=== PATIENT | female | born 1950 | race Caucasian/White ===

== ENCOUNTER → 2018-01-27 07:05 | Outpatient (CLI) | payer MEDICARE, SELFPAY ==
--- NOTE | 2018-01-27 10:26 | STRESSREP ---
Stress Test Report Pharmacologic myocardial perfusion stress test. 67-year-old lady with a history of shortness of breath. Medications hydrocodone thiazide Bystolic lisinopril. Stress protocol: Resting EKG demonstrates normal sinus rhythm with a rate of 72 bpm normal intervals and noted resting blood pressure is 158/80 mmHg. 0.4 mg of regadenoson was infused per usual protocol followed by rapid intravenous saline flush injection continuous EKG monitoring was performed. At rest there were no ST or T-wave changes noted to suggest abnormal flow reserve at peak infusion no ST or T-wave changes were noted to suggest abnormal flow reserve. The resting blood pressure was 158/80 with a final blood pressure of 162/76 meters of mercury. Myocardial perfusion protocol. 14.4 mCi of technetium 99m sestamibi was injected at rest. 0.4 mg of regadenoson was infused per usual protocol. At peak infusion 44.1 mCi of technetium 99m sestamibi was injected. Stress images were obtained stress and rest images were reconstructed and compared in the short axis vertical long and horizontal long axis. Gated images were also obtained. Perfusion SPECT analysis: Review of the stress images demonstrate normal uptake of tracer noted in all areas of the myocardium. The resting images similarly demonstrate normal uptake of tracer noted in all areas of the myocardium. No areas of reversibility are noted suggest ischemia no previous infarct is noted. Gated SPECT analysis. The gated ejection fraction is noted to be 83%. Conclusion: Normal pharmacologic myocardial perfusion stress test. Preserved ejection fraction.
== END ==
PROVIDERS: Family Provider Internal Medicine; PCP Internal Medicine; Visit Provider Internal Medicine
DX: R06.02 Shortness of breath (principal); R61 Generalized hyperhidrosis
CPT/HCPCS: 78452; 93017; A9500; A4216; J2785

== ENCOUNTER → 2018-04-12 07:58 | Outpatient (CLI) | payer MEDICARE, SELFPAY ==
--- NOTE | 2018-04-12 08:01 | US_ITS ---
STUDY: ABDOMINAL ULTRASOUND - RIGHT UPPER QUADRANT REASON FOR VISIT: Female, 67 years old. Fatty liver. TECHNIQUE: Ultrasound evaluation of the right upper quadrant was performed with real-time and static mcneil-scale imaging. TECHNICAL QUALITY: Adequate. COMPARISON: CT abdomen and pelvis 07/30/2016. FINDINGS: Liver: The greatest dimension of the liver on today's study is 15.4 cm. This underestimates the size of the liver. On prior CT imaging the greatest craniocaudal dimension of the right liver was 21.5 cm. Echogenic liver consistent with hepatic steatosis. The bile ducts are within normal limits. There is hepatic color flow. The direction of portal flow is hepatopetal. There is no demonstrated mass lesion. Gallbladder: Normal distended gallbladder. Small portions of the gallbladder wall are mildly thickened. The majority of the gallbladder appears to be normal in wall thickness. Layering echogenic sludge/small stones. There is a negative sonographic Del Angel's sign. There is no pericholecystic fluid. Common Bile Duct (C.B.D.): The common bile duct measures 4 mm. Pancreas: Normal size of the head, body and tail of the pancreas. There is normal echogenicity of the pancreas. There is no demonstrated pancreatic mass or cyst. Right Kidney: Normal size of the right kidney. The right kidney measures 9.3 x 4.5 x 3.9 cm. Normal renal cortex. The right cortex measures 1.5 cm. There is no demonstrated renal mass or cyst. There is no right hydronephrosis. US/Liver IMPRESSION: Cholelithiasis with partial thickening of the gallbladder wall, most consistent with chronic cholecystitis. There are no secondary signs of acute inflammation. The sonographic Del Angel sign is negative and there is no pericholecystic fluid. Hepatic steatosis with hepatomegaly. Electronically Signed: Rogerio Pollack, at 9:55 EDT Tel , Service support ,
--- NOTE | 2018-04-12 08:41 | RAD_ITS ---
STUDY: X-RAY - PELVIS AND RIGHT HIP REASON FOR EXAM: Female, 67 years old. Pain. No acute injury. TECHNIQUE: Radiological exam, hip, unilateral, with pelvis when performed; 2 or 3 views. COMPARISON: None. FINDINGS: Multilevel low lumbar posterior mine and pedicle screw fixation with apparent laminectomy. Mild symmetric SI joint degenerative changes. No significant hip joint degenerative changes. Generalized osteopenia. Frontal and frog-leg lateral views of the right hip reveal no evidence of proximal femoral fracture. Periarticular soft tissues unremarkable. RAD/Hip 2-3 Views with Pelvis IMPRESSION: There are no significant degenerative features of the right or left hip. There is no evidence of fracture. Electronically Signed: Rogerio Pollack, at 9:49 EDT Tel , Service support ,
== END ==
PROVIDERS: Family Provider Internal Medicine; PCP Internal Medicine; Visit Provider Internal Medicine
DX: K76.0 Fatty (change of) liver, not elsewhere classified (principal); M25.551 Pain in right hip
CPT/HCPCS: 73502; 76705

== ENCOUNTER 2018-05-12 09:44 | Day surgery (SDC) | payer MEDICARE, SELFPAY ==
[2018-05-12] VITALS (8 sets, daily range): BP systolic 110–173; BP diastolic 48–85; PULSE 74–87; RESP 16–18; TEMP 35.9–36.5; O2SAT 95–100; BMI 40.4
--- NOTE | 2018-05-12 | GASB_PTH ---
PATIENT: SHELDON DENG LOC: EN U#:[id number] AGE/SX: 67/F ROOM: RE05/12/[address]: Dr. Lisa Thao MD : 1950 BED: DIS: 05/12/2018 SPEC #: [id number] RECD: 05/12/18 14:01 STATUS: ADONAY PARVIZ #: [id number] INA: 05/12/18 00:[address]: Lisa Thao DEPT: SURGICAL PATHOLOGY RECD BY: Yobani Mancilla ENTERED: 05/12/18 14:01 SP TYPE: Gastric Bx OTHR DR: Dr. Irena Henley DO Tissues: Gastric mucous membrane Procedures: Surgery Specimen Level IV HEADER OPERATION: Colonoscopy, EGD PRE-OP DIAGNOSIS: GERD, lower quadrant pain, bright red blood per rectum TISSUE SUBMITTED: Antrum biopsy for H. pylori and path MICROSCOPIC DIAGNOSIS Gastric antrum, biopsy: Mild chronic gastritis. AM:srinivasa 05/13/18 COMMENT The results of immunohistochemistry for Helicobacter pylori will be reported separately ([id number]). MICROSCOPIC DESCRIPTION Slides are reviewed. GROSS DESCRIPTION Received in fixative is one container labeled with the patient's name and designated biopsy, gastric antrum. The specimen consists of one irregular fragment of light rodriguez soft tissue that measures 0.3 x 0.2 x 0.1 cm. The specimen is totally submitted in one cassette. / SJ:rg 05/12/18 TC:3 CPT: 26628
--- NOTE | 2018-05-12 | IMM_PTH ---
PATIENT: SHELDON DENG LOC: EN U#:[id number] AGE/SX: 67/F ROOM: RE05/12/[address]: Dr. Lisa Thao MD : 1950 BED: DIS: 05/12/2018 SPEC #: [id number] RECD: 05/12/18 13:48 STATUS: ADONAY REQ #: [id number] INA: 05/12/18 00:[address]: Lisa Thao DEPT: IMMUNOHISTOCHEMISTRY RECD BY: Mandy Dukes ENTERED: 05/12/18 13:49 SP TYPE: IMMUNO OTHR DR: Dr. Irena Henley DO Tissues: Stomach, NOS Procedures: H Pylori (initial) PHYSICIAN & INSTITUTION [place] [id number] SPECIMEN INFORMATION: Tissue Source: Antrum biopsy Clinical Info: GERD, lower quadrant pain Specimen Number: [id number] CPT code: 84081 METHODOLOGY: Deparaffinized sections of prefer/formalin-fixed tissue or PAP/DQ stained slides are incubated with monoclonal/polyclonal antibodies/oligonucleotide probes. Localization is made via biotin free immunoperoxidase method. Appropriate controls are performed and reacted as expected. Results on target cell population are indicated in the following table: RESULTS: ANTIBODY / CLONE RESULT H Pylori (polyclonal) negative These tests were developed and their performance characteristics determined by [facility]. They may not have been cleared or approved by the U.S. Food and Drug Administration. The FDA has determined that such clearance or approval is not necessary. INTERPRETATION: Antrum, biopsy: Negative for Helicobacter pylori organisms. AM:srinivasa 05/13/18
[2018-05-12 10:31] LABS: Bedside Glucose 132 mg/dL (70-110)
--- NOTE | 2018-05-12 11:38 | RAD_ITS ---
STUDY: BARIUM ENEMA. REASON FOR EXAM: Female, 67 years old. Incomplete colonoscopy. FLUOROSCOPY TIME (if supplied): (1:06) minutes/seconds TECHNIQUE: A private duty lpn film was obtained. Following this, barium was introduced retrograde through the colon. Entire colon was opacified. COMPARISON: None. FINDINGS: There is evidence of prior laminectomy and fusion at the L3-L4 and L4-L5 levels. There is redundancy of the sigmoid colon. Scattered diverticula are seen in the descending colon and splenic flexure. There is no evidence of antegrade or retrograde obstruction to the flow of contrast. No intraluminal filling defect is seen. RAD/Barium Enema w/Air Contrast IMPRESSION: Diverticulosis of the left hemicolon. Redundancy of the sigmoid colon. Electronically Signed: Balbir Field MD at 14:10 EDT Tel [phone], Service support ,
--- NOTE | 2018-05-12 11:54 | PCM.OPRPT ---
Report of Operation Date of Procedure: 05/19/18 Pre-Operative Diagnosis: GERD, left lower quadrant pain, bright red blood per rectum Post-Operative Diagnosis: GERD/gastritis, mild diverticulosis of the sigmoid colon, internal and external hemorrhoids, incomplete colonoscopy to the transverse colon due to a tortuous colon Surgery/Procedure Performed:: EGD with biopsy, incomplete colonoscopy to transverse colon Type of Anesthesia:: MAC Anesthesiologist: Harjeet Dasilva Specimen's removed: 1. Antrum Estimated Blood Loss (mL): Minimal Description of Procedure: Procedure: EGD After obtaining informed consent, the endoscope was passed under direct visualization. Throughout the procedure, patient's blood pressure, pulse, oxygen saturations were monitored continuously by anesthesia. Patient did initially desat when the scope was in her stomach, it was removed patient was resuscitated and placed on a mask per anesthesia and the scope was replaced without any issues. The endoscope was introduced through the mouth and advanced to the 2nd part of the duodenum. The upper GI endoscopy was accomplished without difficulty. Findings: Patch mild erythematous mucosa found gastric antrum. Biopsies were taken with cold biopsy for histology. Estimated blood loss was minimal. The duodenum was normal. Impression: 1. Erythematous mucosa in the antrum. Biopsied. 2. Normal examined duodenum Recommendations: Await biopsy Continue omeprazole 40 mg p.o. daily Start Carafate 1 g p.o. 4 times daily ?1 month Procedure: Colonoscopy incomplete to the transverse colon After reviewing the risks benefits, the patient was deemed in satisfactory condition to undergo procedure. After obtaining informed consent, the scope was passed under direct visualization. Throughout the procedure, the patient's blood pressure pulse and position saturations were monitored continuously anesthesia. The colonoscope was introduced through the anus and advanced to transverse colon- unable to reach the cecum due to continual looping of the scope due to tortuous sigmoid colon. The colonoscopy was performed without difficulty. The patient tolerated procedure well. Quality of bowel prep was good. Findings: The perianal and digital rectal exam revealed internal and external hemorrhoids Mild sigmoid diverticulosis was noted. Otherwise the colon (entire examined portion) appeared normal. Retroflexed view of the distal rectum and anal verge showed mild grade 1 internal hemorrhoids Impression: 1. Complete colonoscopy-recommend barium enema 2. Diverticulosis recommend high-fiber diet 3. External and grade 1 internal hemorrhoids. Recommendations: Get barium enema High-fiber diet - Complications none
== END 2018-05-12 13:37 | disposition home health service (06) ==
LOC: EN 09:45
PROVIDERS: Family Provider Internal Medicine; PCP Internal Medicine; Visit Provider Surgery
PROC: 0DJD8ZZ Inspection of Lower Intestinal Tract, Via Natural or Artificial Opening Endoscopic (ICD-10-PCS; CPT 45378; principal; 2018-05-12 10:55)
DX: K21.9 Gastro-esophageal reflux disease without esophagitis (principal); K62.5 Hemorrhage of anus and rectum; K29.50 Unspecified chronic gastritis without bleeding; K57.30 Diverticulosis of large intestine without perforation or abscess without bleeding; K64.4 Residual hemorrhoidal skin tags; I10 Essential (primary) hypertension; Z79.82 Long term (current) use of aspirin; K80.20 Calculus of gallbladder without cholecystitis without obstruction; K64.8 Other hemorrhoids; Z79.899 Other long term (current) drug therapy
CPT/HCPCS: 43239; 45378; 74280; 82962; 88305; 88342; J7120

== ENCOUNTER → 2018-08-04 09:08 | Outpatient (CLI) | payer MEDICARE, SELFPAY ==
--- NOTE | 2018-08-04 14:33 | NEURO ---
NCS and/or EMG Patient Report Ordering Doctor: Irena Henley DATE OF SERVICE: 08/04/18 Jennifer Triplett is a 67-year-old female presents for electrodiagnostic testing of the lower limbs. She has chief complaint of numbness and tingling in both legs. She also reports low back pain radiating into both lower limbs and has a history of lumbar fusion. Electrodiagnostic findings: Right peroneal motor nerve demonstrates normal distal latency, amplitude with mildly reduced conduction velocity. The left peroneal motor nerve demonstrates prolonged distal latency with reduced amplitude and reduced conduction velocity. Tibial motor responses within normal limits bilaterally. Normal peroneal and tibial F-wave. H reflex prolonged bilaterally. Along the right sural latency is noted absent left sural response mildly prolonged superficial peroneal latency bilaterally. Absent left medial plantar response. Needle EMG testing shows no evidence of denervation in any muscles tested. Motor unit action potentials are normal amplitude and duration. No denervation in the lumbar paraspinals. Electrodiagnostic impression: This is an abnormal study in the lower limbs. 1. Electrodiagnostic findings demonstrate peripheral polyneuropathy, with involvement of motor and sensory nerve fibers. 2. No electrodiagnostic evidence for lumbosacral radiculopathy. If there are any further questions, please do not hesitate to contact me
== END ==
PROVIDERS: Family Provider Internal Medicine; PCP Internal Medicine; Referring Provider Internal Medicine; Visit Provider Internal Medicine
DX: R20.2 Paresthesia of skin (principal); G62.9 Polyneuropathy, unspecified
CPT/HCPCS: 95886; 95913

== ENCOUNTER → 2018-08-10 09:05 | Outpatient (CLI) | payer MEDICARE, SELFPAY ==
--- NOTE | 2018-08-10 09:15 | MRI_ITS ---
STUDY: MRI ABDOMEN WITH AND WITHOUT CONTRAST REASON FOR EXAM: Female, 67 years old. Abnormal blood chemistry. Excessive sweating. Attention adrenal glands. TECHNIQUE: Standardized fat and water weighted pulse sequences were obtained in all 3 orthogonal planes post contrast administration. 10 ml of Gadavist contrast material was administered intravenously for the contrast portion of the examination. COMPARISON: CT abdomen and pelvis with contrast 07/30/2016. FINDINGS: There is very slight thickening of the left adrenal gland body without thickening or nodularity of the limbs. The adrenal gland body measures approximately 9.5 mm in greatest dimension. This is concordant with a small nodular focus seen on prior CT scan of 2016, not increased in size. On opposed phase imaging, this portion of the adrenal gland exhibits signal dropout consistent with lipid content and therefore the small nodule is most likely to represent a small lipid rich benign adrenal adenoma. Functional adenoma cannot be excluded on MRI. Stability since 2016 is consistent with benignity. The right adrenal gland is normal. The liver is enlarged, craniocaudal right liver 24 cm. Diffuse and severe hepatic steatosis with prominent signal dropout on opposed phase imaging throughout the liver parenchyma. No suspicious focal lesions. Unremarkable gallbladder, biliary tree and common bile duct. Mild pancreatic atrophy without ductal ectasia. Normal spleen. Normal bilateral kidneys, collecting systems and proximal ureters. Unremarkable vasculature. Moderately prominent sliding hiatal hernia containing a portion of the gastric fundus is unchanged since imaging of 2016. 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 Functional adenoma cannot be excluded on MRI. Right adrenal gland normal. Severe hepatic steatosis with hepatomegaly. Electronically Signed: Rogerio Pollack, at 17:25 EDT Tel , Service support ,
[2018-08-10 10:01] LABS: CREATININE FINGERSTICK 0.9 mg/dL (0.55-1.02); EGFR FINGERSTICK > 60.0000 mL/min (>60)
== END ==
PROVIDERS: Family Provider Internal Medicine; PCP Internal Medicine; Referring Provider Internal Medicine; Visit Provider Internal Medicine
DX: R79.9 Abnormal finding of blood chemistry, unspecified (principal); Z01.812 Encounter for preprocedural laboratory examination
CPT/HCPCS: 74183; A9585

== ENCOUNTER → 2018-08-12 10:24 | Outpatient (CLI) | payer MEDICARE, SELFPAY ==
--- NOTE | 2018-08-12 10:00 | RAD_ITS ---
PROCEDURE: LUMBAR MYELOGRAM DATE OF EXAMINATION: August 12, 2018 INDICATION: Female, 67 years old. Low back pain. PHYSICIAN: Balbir Field M.D. CONSENT: The patient's history and physical findings were reviewed. The lumbar myelogram procedure was discussed with the patient prior to signing a consent. SEDATION: Local anesthesia with 3 mL of 1% lidocaine was used. FLUOROSCOPY TIME (if supplied): (23 seconds) minutes/seconds Injection Information: 15 cc of Isovue-M 200 Number of images obtained: 4 TECHNIQUE: Digital fluoroscopy was used to identify a safe approach for the lumbar myelogram. The back was prepped and draped in usual fashion. Local anesthesia was utilized. Under fluoroscopic guidance a 22-gauge spinal needle was inserted into the spinal canal at the L4-5 level. The opening pressure measured 11 cm. Clear spinal fluid was seen with a sample sent to the laboratory. 15 mL of Isovue 200 M was injected into the spinal canal. The patient is status post laminectomy and fusion at the L3-L4 and L4-L5 levels. The patient tolerated the procedure well. MRI will follow. RAD/Lumbar Myelogram IMPRESSION: Lumbar myelogram for CT examination. Electronically Signed: Balbir Field MD at 12:08 EDT Tel [phone], Service support ,
[2018-08-12 10:36] VITALS: BP 195/78; PULSE 80; RESP 16; TEMP 37; O2SAT 99; BMI 41.2
--- NOTE | 2018-08-12 11:40 | NURSING ---
PT RESTING WITH HEAD AT 30 DEGREES. VS TAKEN. PT EATING COOKIES. LIGHTS TURNED DOWN. DENIES NEEDS.
[2018-08-12 11:45] VITALS: BP 146/78; PULSE 75; RESP 16; O2SAT 98
--- NOTE | 2018-08-12 12:36 | CT_ITS ---
STUDY: CT LUMBAR SPINE WITHOUT CONTRAST REASON FOR EXAM: Female, 67 years old. Low back pain. RADIATION DOSAGE (If Supplied By Facility): CTDIvol = ( 43.33 ) mGy, DLP = ( 1099.64 ) mGycm TECHNIQUE: The patient was scanned in a multi detector CT scanner following fluoroscopic guided myelogram. High resolution transaxial imaging was performed. Images were obtained from T11-12 to S2. Sagittal and coronal images were reconstructed. # of Images: 398 Individualized dose optimization techniques were used for this CT. COMPARISON: CT abdomen pelvis July 30, 2016; MRI lumbar spine December 26, 2016. FINDINGS: There are prior L3-L5 laminectomies, and posterior fusion at the L4-5 levels on prior imaging now extends from L3-L5. Transpedicular metal screws at these levels are connected on either side by longitudinal metal rods. There is also been partial resection of the L2 spinous process. There is stable grade 1-2 anterolisthesis of L4 on L5. Normal lumbar lordosis. There is no substantial scoliosis. The conus terminates at the L1 level. There are bilateral chronic L2 pars defects. No osseous destructive lesion or acute fracture of the vertebrae of the lumbar spine. There is mild rightward subluxation of L2 on L3. There are degenerative arthroses of the bilateral sacroiliac joints. L1-2: Anterolateral endplate spurring. Normal disc height and morphology. Normal bilateral facet joints. Normal central canal and bilateral lateral recesses. Normal bilateral intervertebral neural foramina. L2-3: There is degenerative endplate sclerosis and subcortical cystic degenerative changes. Anterolateral endplate osteophytes extend more posteriorly on the left. Moderately severe disc height narrowing with central vacuum phenomenon due to disc dehydration and anterior circumferential disc protrusion. Moderate degenerative arthroses bilateral facet joints. Borderline retrolisthesis of L2 on L3. Moderate narrowing of the central canal and bilateral lateral recesses. Mild to moderate osseous narrowing of the bilateral intervertebral neural foramina and probable disc impingement on the exiting nerve roots. L3-4: Circumferential endplate spurring. Moderate disc height narrowing, greater on the right, with circumferential disc bulge. Osseous fusion of the bilateral facet joints. Normal central canal and bilateral lateral recesses. Patent bilateral intervertebral neural foramina with possible disc impingement on the exiting nerve root. L4-5: Large posterior L4 endplate osteophytes as well as minor anterolateral endplate spurring. Moderate to moderately severe disc height narrowing with minimal central vacuum phenomenon. Osseous fusion of the bilateral facet joints. There is some distortion of the central canal and bilateral lateral recesses without significant narrowing. Minor osseous encroachment on the left intervertebral neural foramen. L5-S1: Anterolateral endplate osteophytes. Moderate disc height narrowing with central vacuum phenomenon and circumferential disc protrusion. Moderate degenerative arthrosis of the bilateral facet joints. Mild disc impingement on the anterior central canal and bilateral lateral recesses. There is moderate osteophyte impingement on the bilateral intervertebral neural foramina. There is moderate atherosclerotic calcific plaquing of the abdominal aorta. No demonstrated aneurysm. CT/Spine Lumbar without Contrast IMPRESSION: 1. Posterior fusion lumbar spine is been extended from L4-5 to now include laminectomies and fusion with metal hardware L3-L5. Grade 1-2 anterolisthesis of L4 on L5 is unchanged. There is partial resection of the L2 spinous process. 2. Multilevel degenerative changes, as described above most prominent at L2-3. There are also degenerative changes of the bilateral sacroiliac joints. 3. Chronic bilateral L2 pars defects again noted. There is stable mild rightward subluxation of L2 on L3. 4. Moderate abdominal aortic calcific plaquing. There is no demonstrated aneurysm, but this still portends some risk for future cardiovascular event, Abdominal Aortic Calcific Deposits Are an Important Predictor of Vascular Morbidity and Mortality; Guillermo Desai et al. Circulation, Dec 2000;103:3212-7555. Electronically Signed: Cirilo Emerson MD at 16:05 EDT , Service support ,
[2018-08-12 12:45] VITALS: BP 154/68; PULSE 76; RESP 16; O2SAT 97
== END ==
PROVIDERS: Family Provider Internal Medicine; PCP Internal Medicine; Referring Provider Orthopaedic Surgery Orthopaedic Surgery of the Spine; Visit Provider Orthopaedic Surgery Orthopaedic Surgery of the Spine
DX: M75.41 Impingement syndrome of right shoulder (principal); M48.061 Spinal stenosis, lumbar region without neurogenic claudication; M51.26 Other intervertebral disc displacement, lumbar region; Z98.1 Arthrodesis status
CPT/HCPCS: 62284; 72131; 72265; Q9965

== ENCOUNTER → 2018-09-30 10:39 | Outpatient (CLI) | payer MEDICARE, SELFPAY ==
--- NOTE | 2018-09-30 10:41 | CDU_ITS ---
Reason For Study: Carotid Stenosis Rt. Velocities/BP Lt. Velocities/BP Prox CCA 86.8/17 cm/sec. Prox CCA 118/21.2 cm/sec. Mid CCA 76.2/16.4 cm/sec. Mid CCA 83.8/19.3 cm/sec. Dist CCA 69.2/18.2 cm/sec. Dist CCA 85.6/24.6 cm/sec. Prox ICA 83.3/24 cm/sec. Prox ICA 83.8/26.4 cm/sec. Mid ICA 90.3/26.4 cm/sec. Mid ICA 86.8/28.7 cm/sec. Dist ICA 100/28.7 cm/sec. Dist ICA 118/29.1 cm/sec. Rt. ICA/CCA = 1.31. Lt. ICA/CCA = 1.38. Prox ECA 142/17.7 cm/sec. Prox ECA 99.7/17 cm/sec. Rt. Vert. 59.3/15.7 cm/sec. Lt. Vert. 107/20.4 cm/sec. Right Extracranial There is intimal thickening but no significant atherosclerotic plaque noted in the right common carotid artery. There is heterogeneous, irregular atherosclerotic plaque noted in the right internal carotid artery. There is intimal thickening but no significant atherosclerotic plaque noted in the right external carotid artery. Antegrade flow is noted in the right vertebral artery. Left Extracranial There is intimal thickening but no significant atherosclerotic plaque noted in the left common carotid artery. There is heterogeneous, irregular atherosclerotic plaque noted in the left internal carotid artery. There is intimal thickening but no significant atherosclerotic plaque noted in the left external carotid artery. Antegrade flow is noted in the left vertebral artery. Procedure Carotid Duplex 32845. Exam performed in department. Interpretation Summary Mild (<50%) stenosis right extracranial internal carotid. Mild (<50%) stenosis left extracranial internal carotid. Flow within the vertebral arteries is antegrade bilaterally. Ordering Physician: Irena Henley Referring Physician: Irena Henley Performed By: Adali Houston RVT and Student
--- NOTE | 2018-09-30 11:04 | CT_ITS ---
STUDY: CT CHEST WITHOUT CONTRAST REASON FOR EXAM: Female, 67 years old. Follow-up lung nodule. RADIATION DOSAGE (If Supplied By Facility): CTDIvol = ( 19.99 ) mGy, DLP = ( 659.38 ) mGycm TECHNIQUE: Transaxial imaging was performed without the administration of intravenous contrast material. Multiplanar coronal and sagittal images were reformatted. Individualized dose optimization techniques were used for this CT. COMPARISON: CT of the chest, July 26, 2014. FINDINGS: The lungs are well expanded. In the superior segment of the right lower lobe is again seen a well-defined rounded nodule measuring 1.4 x 1.2 x 1.3 cm. This is essentially unchanged. There is no other mass or infiltrate. There is no demonstrated pleural abnormality. Normal heart and pericardium. There are calcifications of the coronary arteries. Normal mediastinum. Normal hilar regions. Normal unenhanced pulmonary arteries. There is atherosclerotic calcification of the aortic arch with tortuosity and elongation of the aortic arch and descending thoracic aorta. There are multi-level degenerative changes of the thoracic spine. There is diffuse fatty infiltration of liver without mass. There is a type I hiatal hernia. CT/Chest without Contrast IMPRESSION: 1. Stable right lower lobe mass. The stability over a 4 year period would suggest benign findings. No further workup is thought necessary. 2. Fatty infiltration of the liver. 3. No other interval change. Electronically Signed: Mitchell William DO at 19:55 EST Tel [phone], Service support ,
--- NOTE | 2018-09-30 11:05 | CT_ITS ---
STUDY: CT BRAIN WITH AND WITHOUT CONTRAST REASON FOR EXAM: Female, 67 years old. Chronic headache. RADIATION DOSAGE (If Supplied By Facility): CTDIvol = ( 44.99 ) mGy, DLP = ( 1547.23 ) mGycm TECHNIQUE: Transaxial CT imaging of the brain was performed pre and post contrast administration. The examination was performed with intravenous administration of 50 ml of Isovue 300 contrast material. Individualized dose optimization techniques were used for this CT. COMPARISON: None. FINDINGS: Normal soft tissue structures. Normal calvarium. There is asymmetry of the ventricles consistent with an anatomic variant. Normal white matter tracts of the cerebral hemispheres. Normal basal ganglia and thalami. Normal brainstem. Normal cerebellum. There is no intracranial hemorrhage. There are no findings of an acute ischemic infarction. There is no evidence of abnormal contrast enhancement or vascular abnormality. Normal visualized paranasal sinuses. CT/Brain/Head W/WO Contrast IMPRESSION: Normal unenhanced and enhanced CT scan of the brain. Electronically Signed: Mitchell William DO at 20:02 EST Tel [phone], Service support ,
== END ==
PROVIDERS: Family Provider Internal Medicine; PCP Internal Medicine; Referring Provider Internal Medicine; Visit Provider Internal Medicine
DX: I65.23 Occlusion and stenosis of bilateral carotid arteries (principal); R91.1 Solitary pulmonary nodule; R51 Headache
CPT/HCPCS: 70470; 71250; 93880; Q9967

== ENCOUNTER → 2018-12-17 12:55 | Outpatient (CLI) | payer MEDICARE, SELFPAY ==
--- NOTE | 2018-12-17 12:57 | BI_ITS ---
MAMMOGRAPHY - BILATERAL SCREENING REASON FOR EXAM: Female, 68 years old. Routine annual screening examination. PERTINENT HISTORY: Non-contributory. TECHNIQUE: Digital bilateral breast riki (3D mammographic acquisition) in the CC and MLO projections. 2-D mediolateral oblique (MLO) and craniocaudad (CC) views of both breasts were obtained. CAD: Full Field Digital Mammography with Computer Added Detection was performed. COMPARISON: Comparison is made with prior study dated October 27, 2017 and October 17, 2016. FINDINGS: Breast Composition: The breasts are almost entirely fatty. There are no dominant masses or suspicious calcifications. Stable benign-appearing bilateral axillary lymph nodes. No other significant abnormalities are identified. There has been no significant change since the prior study. BI/SCREENING MAMM (CAD), BILAT IMPRESSION: Stable bilateral screening mammogram. Yearly follow-up mammogram recommended. (A) ASSESSMENT CATEGORY: BIRADS Category 2: Benign. A letter regarding these results will be sent to the patient by the facility within 30 days. Approximately 10% of breast cancers are not detected by mammography. A normal mammogram should not delay biopsy of a clinically suspicious abnormality. [id number] Electronically Signed: Balbir Field MD at 14:32 EST , Service support ,
== END ==
PROVIDERS: Family Provider Internal Medicine; PCP Internal Medicine; Referring Provider Internal Medicine; Visit Provider Internal Medicine
DX: Z12.31 Encounter for screening mammogram for malignant neoplasm of breast (principal)
CPT/HCPCS: 77063; 77067

== ENCOUNTER → 2019-03-14 17:46 | Outpatient (CLI) | payer MEDICARE, SELFPAY ==
--- NOTE | 2019-03-14 17:57 | CT_ITS ---
HISTORY: PT STATED LEFT ADRENAL GLAND ENLARGEMENT PER MRI REPORT, PLEASE INCLUDE HOUNSFIELD UNITS IN REPORT PER ORDERING PHYSICIAN EXAMINATION: CT Abdomen WO/W Contrast TECHNIQUE: Helically acquired images were obtained of the abdomen both before and after IV contrast. A radiation dose optimization technique was used for this scan. IV Contrast dosage and agent: 100 Isovue 300 Oral contrast: None. COMPARISON: MRI abdomen 08/10/18 FINDINGS: LOWER CHEST: Lung bases are clear. No cardiomegaly or pericardial effusion observed. LIVER: Diffuse hepatic steatosis again demonstrated. No focal lesions. GALLBLADDER AND BILIARY TREE: No calcified gallstones. There is no gallbladder distension or wall edema. No intra- or extrahepatic biliary ductal dilation. KIDNEYS AND URETERS: Punctate nonobstructing stone right kidney. No acute renal abnormality. Left kidney unremarkable. ADRENAL GLANDS: Normal right adrenal gland. Mild nodular thickening right adrenal gland, Hounsfield units -8 precontrast, 48 portal venous phase and 11 delayed phase. SPLEEN: Normal size without focal cystic or solid mass. PANCREAS: No focal cystic or solid mass. BOWEL: No stomach or bowel distension. No focal inflammatory change observed. LYMPH NODES: No enlarged mesenteric or retroperitoneal lymph nodes. PERITONEUM: No ascites or free air. No other fluid collection. VESSELS: Aorta is non-dilated. Moderate atherosclerosis. ABDOMINAL WALL: No discrete abdominal or pelvic wall hernia observed. BONES: No lytic or blastic abnormality observed. L3-L4-L5 posterior laminectomy and fusion partially visible. CT/Abdomen W/WO IV Contrast IMPRESSION: Small left adrenal adenoma again demonstrated. Punctate nonobstructing right renal stone. No acute findings. Individualized dose optimization techniques were used for this CT. at 0342 Reported and signed by: Josué Ellis MD Electronically Signed: Josué Ellis, at 3:41 EDT Tel , Service support ,
[2019-03-14 18:10] LABS: CREATININE FINGERSTICK 1.8 mg/dL (0.55-1.02)
== END ==
PROVIDERS: Family Provider Internal Medicine; PCP Internal Medicine; Referring Provider Internal Medicine Endocrinology, Diabetes & Metabolism; Visit Provider Internal Medicine Endocrinology, Diabetes & Metabolism
DX: D44.12 Neoplasm of uncertain behavior of left adrenal gland (principal)
CPT/HCPCS: 74170; Q9967

== ENCOUNTER → 2019-03-29 14:29 | Outpatient (CLI) | payer MEDICARE, SELFPAY ==
--- NOTE | 2019-03-29 14:42 | RAD_ITS ---
HISTORY: HISTORY: ARArthritisRAD-EXT/JT XR Hand Min 3 Views COMPARISON: None FINDINGS: # of images incl. paperwork: 3 3 views of the left hand. Interphalangeal arthritis is present at many levels. In some places it takes on a seagull wing type shape. First carpometacarpal joint arthritis is also present with loss of joint space, bony remodeling, and lateral subluxation of the first metacarpal on the trapezium. Soft tissue swelling may be minimal within the second and third digits. Radiocarpal joint is mildly narrowed. Dionne osteophyte is present on the palmar surface of the third metacarpal. RAD/Hand Min 3 Views IMPRESSION: Osteoarthritis. at 0545 Reported and signed by: Cristino Hightower MD Electronically Signed: Cristino Hightower MD at 5:44 EDT Tel , Service support ,
--- NOTE | 2019-03-29 14:42 | RAD_ITS ---
HISTORY: HISTORY: ARArthritisRAD-EXT/JT XR Hand Min 3 Views COMPARISON: No previous imaging of the right hand FINDINGS: # of images incl. paperwork: 3 3 views of the right hand. Similar to the left hand, arthritis is present throughout the interphalangeal joints and at the first carpometacarpal joint. Radiocarpal joint is also narrowed. There may be some widening of the scapholunate distance. The interphalangeal joint arthritis takes on somewhat of a gullwing deformity. Spoke osteophyte present on the distal ends of the metacarpals. RAD/Hand Min 3 Views IMPRESSION: Osteoarthritis. Widening of the scapholunate distance suggestive of scapholunate ligament injury. at 0546 Reported and signed by: Cristino Hightower MD Electronically Signed: Cristino Hightower MD at 5:45 EDT Tel , Service support ,
== END ==
PROVIDERS: Family Provider Internal Medicine; PCP Internal Medicine; Referring Provider Internal Medicine; Visit Provider Internal Medicine
DX: M19.90 Unspecified osteoarthritis, unspecified site (principal)
CPT/HCPCS: 73130

== ENCOUNTER → 2019-10-21 12:00 | Outpatient (CLI) | payer MEDICARE, SELFPAY ==
[2019-05-11 08:53] VITALS: BMI 40.4
--- NOTE | 2019-10-21 12:02 | CDU_ITS ---
Reason For Study: Carotid Stenosis Rt. Velocities/BP Lt. Velocities/BP Prox CCA 62/10 cm/sec. Prox CCA 96/14 cm/sec. Mid CCA 70/14 cm/sec. Mid CCA 78/13 cm/sec. Dist CCA 61/13 cm/sec. Dist CCA 62/13 cm/sec. Prox ICA 76/22 cm/sec. Prox ICA 80/25 cm/sec. Mid ICA 74/22 cm/sec. Mid ICA 89/26 cm/sec. Dist ICA 89/25 cm/sec. Dist ICA 98/19 cm/sec. Rt. ICA/CCA = 1.3. Lt. ICA/CCA = 1.3. Prox ECA 77/7 cm/sec. Prox ECA 99/8 cm/sec. Rt. Vert. 37/11 cm/sec. Lt. Vert. 81/22 cm/sec. Right Extracranial There is heterogeneous, irregular atherosclerotic plaque noted in the right common carotid artery. There is heterogeneous, irregular atherosclerotic plaque noted in the right internal carotid artery. There is intimal thickening but no significant atherosclerotic plaque noted in the right external carotid artery. Antegrade flow is noted in the right vertebral artery. Left Extracranial There is heterogeneous, irregular atherosclerotic plaque noted in the left common carotid artery. There is heterogeneous, irregular atherosclerotic plaque noted in the left internal carotid artery. There is intimal thickening but no significant atherosclerotic plaque noted in the left external carotid artery. Antegrade flow is noted in the left vertebral artery. Procedure Carotid Duplex 24026. Exam performed in department. Interpretation Summary Mild (<50%) stenosis right extracranial internal carotid. Mild (<50%) stenosis left extracranial internal carotid. Flow within the vertebral arteries is antegrade bilaterally. Ordering Physician: Irena Henley Referring Physician: Irena Henley Performed By: Melita Ross, GRACE, RVT
== END ==
PROVIDERS: Family Provider Internal Medicine; PCP Internal Medicine; Referring Provider Internal Medicine; Visit Provider Internal Medicine
DX: I65.23 Occlusion and stenosis of bilateral carotid arteries (principal)
CPT/HCPCS: 93880

== ENCOUNTER → 2019-12-22 | Outpatient (CLI) | payer MEDICARE, SELFPAY ==
[2019-05-11 08:53] VITALS: BMI 40.4
--- NOTE | 2019-12-22 10:00 | BD_ITS ---
STUDY: DUAL ENERGY X-RAY ABSORPTIOMETRY / DXA REASON FOR EXAM: Female, 69 years old. Age of christy- 53. Pat is 161# and 60.5 and quot; a loss of 1.5 and quot;. Type II diabetic and takes meds. Past hx of using a diuretic. Exercises a little. Bilat feet fx'' s. Hx of lumbar surgery. TECHNIQUE: Bone Mineral Density (BMD) measurements of lumbar spine and bilateral hips were obtained. COMPARISON: Comparison is made with prior study dated October 27, 2017. FINDINGS: Lumbar Spine (L1-L4): g/cm2 (1.218) / T-score (0.4) / Z-score (2.1) Findings are suggestive of normal bone density with a low fracture risk. Left Femur Total: g/cm2 (1.112) / T-score (0.8) / Z-score (2.3) Left Femoral Neck: g/cm2 (1.048) / T-score (0.1) / Z-score (1.8) Right Femur Total: g/cm2 (1.029) / T-score (0.2) / Z-score (1.7) Right Femoral Neck: g/cm2 (0.954) / T-score (0.6) / Z-score (1.1) The T-Scores on the most recent prior examination were: Lumbar Spine (L1-L4): There has been improvement of bone density since the previous examination. Left Femur Total: which represents a worsening of 6.2%. Right Femur Total: which represents a worsening of 7.8%. BD/Dexa Bone Density Study IMPRESSION: The patient is considered normal as outlined below according to World [place] Organization (WHO) criteria with a low fracture risk. There has been worsening of bone density since the previous examination. Reference Information: The T-score is the number of standard deviations above or below the standard which is normal for young adults at their peak bone mineral density. The World Health Organization (WHO) interprets the T-scores as follows: Above -1 Normal bone density Between -1 and -2.5 Osteopenia Equal to / or below -2.5 Osteoporosis As a practical clinical guideline, osteopenia may be graded as follows: Mild -1 through -1.5 Moderate -1.6 through -2.0 Severe -2.1 through -2.4 The Z-score is the number of standard deviations above or below age-matched controls. A Z-score of less than -1.5 would be considered abnormal. References: 1. NIH Osteoporosis and Related Bone Diseases http://www.osteo.org 2. International Society for Clinical Densitometry http://www.iscd.org 3. National Osteoporosis Foundation http://www.nof.org Electronically Signed: Balbir Field, at 15:36 EST , Service support ,
--- NOTE | 2019-12-22 10:45 | BI_ITS ---
MAMMOGRAPHY - BILATERAL DIAGNOSTIC REASON FOR EXAM: Female, 69 years old. NO PREV BREAST SURG/BX, HX LEFT SHOULDER SURGERY 2012, NO PROBLEMS, FEW FLAT MOLES AND HEMANGIOMAS- NOTHING MARKED, NO FAM HX CA PERTINENT HISTORY: Non-contributory. TECHNIQUE: Digital examination. Mediolateral oblique (MLO) and craniocaudad (CC) views of both breasts were obtained. CAD: COMPARISON: Previous mammogram obtained on 12/17/2018 FINDINGS: Breast Composition: Fatty There are no dominant masses or suspicious calcifications. No other significant abnormalities are identified. BI/SCREEN MAMM (CAD) W/LINETTE BILAT IMPRESSION: Stable bilateral diagnostic mammogram. ASSESSMENT CATEGORY: BIRADS Category 1: Negative. A letter regarding these results will be sent to the patient by the facility within 30 days. FOLLOW UP RECOMMENDATION: Approximately 10% of breast cancers are not detected by mammography. A normal mammogram should not delay biopsy of a clinically suspicious abnormality. Electronically Signed: Wild Long, at 18:38 EST Tel , Service support ,
== END | disposition home or self-care (01) ==
LOC: OPBD 09:56
PROVIDERS: Family Provider Internal Medicine; PCP Internal Medicine; Referring Provider Internal Medicine; Visit Provider Internal Medicine
DX: Z78.0 Asymptomatic menopausal state (principal); Z12.31 Encounter for screening mammogram for malignant neoplasm of breast
CPT/HCPCS: 77063; 77067; 77080

== ENCOUNTER → 2021-04-25 12:38 | Outpatient (CLI) | payer MEDICARE, SELFPAY ==
[2019-05-11 08:53] VITALS: BMI 40.4
--- NOTE | 2021-04-25 12:40 | BI_ITS ---
MAMMOGRAPHY - BILATERAL SCREENING REASON FOR EXAM: Female, 70 years old. Routine annual screening examination. PERTINENT HISTORY: Non-contributory. TECHNIQUE: Digital bilateral breast linette (3D mammographic acquisition) in the CC and MLO projections. 2-D mediolateral oblique (MLO) and craniocaudad (CC) views of both breasts were obtained. CAD: Full Field Digital Mammography with Computer Added Detection was performed. COMPARISON: Comparison is made with prior examination dated 12/22/2019 and 12/17/2018. FINDINGS: Breast Composition: The breasts are almost entirely fatty. There are no dominant masses or suspicious calcifications. Stable benign appearing bilateral axillary nodes. No other significant abnormalities are identified. There has been no significant change since the prior study. BI/SCRN MAMM (CAD)W/LINETTE BILAT IMPRESSION: Stable bilateral screening mammogram. Yearly follow-up mammogram recommended. (A) ASSESSMENT CATEGORY: BIRADS Category 2: Benign. A letter regarding these results will be sent to the patient by the facility within 30 days. Approximately 10% of breast cancers are not detected by mammography. A normal mammogram should not delay biopsy of a clinically suspicious abnormality. [id number] Electronically Signed: Balbir Field MD at 13:59 EDT , Service support ,
== END ==
PROVIDERS: PCP Nurse Practitioner; Referring Provider Nurse Practitioner; Visit Provider Nurse Practitioner
DX: Z12.31 Encounter for screening mammogram for malignant neoplasm of breast (principal)
CPT/HCPCS: 77063; 77067

== ENCOUNTER → 2022-05-14 | Outpatient (CLI) | payer MEDICARE, SELFPAY ==
--- NOTE | 2022-05-14 14:08 | BI_ITS ---
MAMMOGRAPHY - BILATERAL SCREENING REASON FOR EXAM: Female, 71 years old. Routine annual screening examination. PERTINENT HISTORY: Non-contributory. TECHNIQUE: Digital bilateral breast linette (3D mammographic acquisition) in the CC and MLO projections. 2-D mediolateral oblique (MLO) and craniocaudad (CC) views of both breasts were obtained. CAD: Full Field Digital Mammography with Computer Added Detection was performed. COMPARISON: Comparison is made with prior study dated 04/25/2021 and 12/22/2019. FINDINGS: Breast Composition: The breasts are almost entirely fatty. There are no dominant masses or suspicious calcifications. Stable benign-appearing left axillary lymph node. No other significant abnormalities are identified. There has been no significant change since the prior study. BI/SCRN MAMM (CAD)W/LINETTE BILAT IMPRESSION: Stable bilateral screening mammogram. Yearly follow-up mammogram recommended. (A) ASSESSMENT CATEGORY: BIRADS Category 2: Benign. A letter regarding these results will be sent to the patient by the facility within 30 days. Approximately 10% of breast cancers are not detected by mammography. A normal mammogram should not delay biopsy of a clinically suspicious abnormality. [id number] Electronically Signed: Balbir Field MD at 15:17 EDT ,
== END | disposition home or self-care (01) ==
LOC: OPBI 14:05
PROVIDERS: PCP Nurse Practitioner; Visit Provider Nurse Practitioner Family
DX: Z12.31 Encounter for screening mammogram for malignant neoplasm of breast (principal)
CPT/HCPCS: 77063; 77067

== ENCOUNTER → 2022-08-21 | Outpatient (CLI) | payer MEDICARE, SELFPAY ==
--- NOTE | 2022-08-21 11:01 | BD_ITS ---
STUDY: DUAL ENERGY X-RAY ABSORPTIOMETRY / DXA REASON FOR EXAM: Female, 71 years old. Z78.0 TECHNIQUE: Bone Mineral Density (BMD) measurements of lumbar spine and bilateral hips were obtained. COMPARISON: Comparison is made with prior study dated 12/22/2019. FINDINGS: Lumbar Spine (L1-L4): g/cm2 (1.151) / T-score (1.6) / Z-score (3.7) Findings are suggestive of normal bone density with a low fracture risk. Left Femur Total: g/cm2 (1.039) / T-score (0.8) / Z-score (2.5) Left Femoral Neck: g/cm2 (0.798) / T-score (-0.5) / Z-score (1.6) Right Femur Total: g/cm2 (0.947) / T-score (0.0) / Z-score (1.8) Right Femoral Neck: g/cm2 (0.779) / T-score (-0.6) / Z-score (1.4) The T-Scores on the most recent prior examination were: Lumbar Spine (L1-L4): There has been improvement of bone density since the previous examination. Left Femur Total: which represents a worsening of 0.4%. Right Femur Total: which represents a worsening of 1.6%. BD/Dexa Bone Density Study IMPRESSION: The patient is considered normal as outlined below according to World [place] Organization (WHO) criteria with a low fracture risk. There has been worsening of bone density since the previous examination. Reference Information: The T-score is the number of standard deviations above or below the standard which is normal for young adults at their peak bone mineral density. The World Health Organization (WHO) interprets the T-scores as follows: Above -1 Normal bone density Between -1 and -2.5 Osteopenia Equal to / or below -2.5 Osteoporosis As a practical clinical guideline, osteopenia may be graded as follows: Mild -1 through -1.5 Moderate -1.6 through -2.0 Severe -2.1 through -2.4 The Z-score is the number of standard deviations above or below age-matched controls. A Z-score of less than -1.5 would be considered abnormal. References: 1. NIH Osteoporosis and Related Bone Diseases www osteo.org 2. International Society for Clinical Densitometry www iscd.org 3. National Osteoporosis Foundation www nof.org Electronically Signed: Balbir Field MD at 12:32 EDT ,
== END | disposition home or self-care (01) ==
PROVIDERS: PCP Nurse Practitioner Family; Visit Provider Nurse Practitioner Family
DX: Z78.0 Asymptomatic menopausal state (principal)
CPT/HCPCS: 77080

== ENCOUNTER → 2023-01-15 | Outpatient (CLI) | payer MEDICARE, SELFPAY | END | disposition home or self-care (01) | LOC: PSN 11:35 | PROVIDERS: PCP Nurse Practitioner Family; Visit Provider Nurse Practitioner Family | DX: R42 Dizziness and giddiness (principal) | CPT/HCPCS: 93225; 93226 ==

== ENCOUNTER → 2023-01-26 | Outpatient (CLI) | payer MEDICARE, SELFPAY | END | disposition home or self-care (01) | LOC: SL 20:17 | PROVIDERS: PCP Nurse Practitioner Family; Visit Provider Nurse Practitioner Family | DX: G47.33 Obstructive sleep apnea (adult) (pediatric) (principal) | CPT/HCPCS: 95811 ==

== ENCOUNTER → 2023-02-23 | Outpatient (CLI) | payer MEDICARE, SELFPAY | END | disposition home or self-care (01) | LOC: SL 13:47 | PROVIDERS: PCP Nurse Practitioner Family; Visit Provider Nurse Practitioner Family | DX: Z00.00 Encounter for general adult medical examination without abnormal findings (principal) ==

== ENCOUNTER → 2023-02-27 | Outpatient (CLI) | payer MEDICARE, SELFPAY ==
--- NOTE | 2023-02-27 12:59 | CDU_ITS ---
Reason For Study: Lightheadedness Rt. Velocities/BP Lt. Velocities/BP Prox CCA 60.7/7.3 cm/sec. Prox CCA 97.9/14.5 cm/sec. Mid CCA 72.1/12.3 cm/sec. Mid CCA 80.6/14.2 cm/sec. Dist CCA 55.7/11.6 cm/sec. Dist CCA 64.6/11.8 cm/sec. Prox ICA 89.4/19.0 cm/sec. Prox ICA 70.7/21.6 cm/sec. Mid ICA 110.4/18.2 cm/sec. Mid ICA 78.1/17.9 cm/sec. Dist ICA 94.9/28.6 cm/sec. Dist ICA 74.7/16.3 cm/sec. Rt. ICA/CCA = 1.5. Lt. ICA/CCA = 0.9. Prox ECA 139.4/9.7 cm/sec. Prox ECA 133.0/10.1 cm/sec. Rt. Vert. 58.9/14.5 cm/sec. Lt. Vert. 52.4/7.2 cm/sec. Right Extracranial There is homogeneous, smooth atherosclerotic plaque noted in the right common carotid artery. There is heterogeneous, irregular atherosclerotic plaque noted in the right internal carotid artery. The right internal carotid artery is very tortuous. There is intimal thickening but no significant atherosclerotic plaque noted in the right external carotid artery. Antegrade flow is noted in the right vertebral artery. Left Extracranial There is homogeneous, smooth atherosclerotic plaque noted in the left common carotid artery. There is heterogeneous, irregular atherosclerotic plaque noted in the left internal carotid artery. The left internal carotid artery is very tortuous. There is intimal thickening but no significant atherosclerotic plaque noted in the left external carotid artery. Antegrade flow is noted in the left vertebral artery. Procedure Carotid Duplex 40482. This is a Carotid Duplex examination using B-mode, color flow and specral Doppler. The exam was diagnostic. Exam performed in department. VL/Carotid Duplex Ultrasound Interpretation Summary Irregular calcific plaque with shadowing at the proximal right internal carotid artery with less than 50% stenosis Less than 50% stenosis right external carotid artery Irregular calcific plaque with shadowing at the proximal left internal carotid artery with less than 50% stenosis. Very tortuous left internal carotid artery Less than 50% stenosis left external carotid artery Patent and antegrade vertebral arteries bilaterally No apparent change from the previous examination of October 21, 2019 Ordering Physician: Jennifer Croft Referring Physician: Jennifer Croft Performed By: Ole Zuniga RVT
== END | disposition home or self-care (01) ==
LOC: CVS 12:56
PROVIDERS: PCP Nurse Practitioner Family; Referring Provider Nurse Practitioner Family; Visit Provider Nurse Practitioner Family
DX: R42 Dizziness and giddiness (principal)
CPT/HCPCS: 93880

== ENCOUNTER → 2023-05-19 | Outpatient (CLI) | payer MEDICARE, SELFPAY ==
--- NOTE | 2023-05-19 11:40 | BI_ITS ---
MAMMOGRAPHY - BILATERAL SCREENING REASON FOR EXAM: Female, 72 years old. Routine annual screening examination. PERTINENT HISTORY: Non-contributory. TECHNIQUE: Digital bilateral breast linette (3D mammographic acquisition) in the CC and MLO projections. 2-D mediolateral oblique (MLO) and craniocaudad (CC) views of both breasts were obtained. CAD: Full Field Digital Mammography with Computer Added Detection was performed. COMPARISON: Comparison is made with prior study May 14, 2022 and April 25, 2021. FINDINGS: Breast Composition: The breasts are almost entirely fatty. There are no dominant masses or suspicious calcifications. No other significant abnormalities are identified. There has been no significant change since the prior study. BI/SCRN MAMM (CAD)W/LINETTE BILAT IMPRESSION: Stable bilateral screening mammogram. Yearly follow-up mammogram recommended. (A) ASSESSMENT CATEGORY: BIRADS Category 1: Negative. A letter regarding these results will be sent to the patient by the facility within 30 days. Approximately 10% of breast cancers are not detected by mammography. A normal mammogram should not delay biopsy of a clinically suspicious abnormality. [id number] Electronically Signed: Balbir Field MD at 13:50 EDT ,
== END | disposition home or self-care (01) ==
LOC: OPBI 11:33
PROVIDERS: PCP Nurse Practitioner Family; Referring Provider Nurse Practitioner Family; Visit Provider Nurse Practitioner Family
DX: Z12.31 Encounter for screening mammogram for malignant neoplasm of breast (principal)
CPT/HCPCS: 77063; 77067

== ENCOUNTER → 2023-09-04 | Outpatient (CLI) | payer MEDICARE, SELFPAY ==
--- NOTE | 2023-09-04 07:20 | ECHOCS_ITS ---
Reason For Study: BETTENCOURT Procedure This was a 2D Doppler, Color Flow transthoracic echocardiogram. The study was technically difficult. Contrast injection was performed. Exam performed in department. Left Ventricle Normal LV size. The estimated ejection fraction is 70 %. Diastolic function is indeterminate. No regional wall motion abnormalities noted. Right Ventricle Normal RV size. Normal systolic function. Atria Normal left atrium. Normal right atrium. No doppler evidence for ASD. Mitral Valve There is no mitral valve stenosis. No mitral valve insufficiency. Tricuspid Valve There is no tricuspid stenosis. Unable to estimate RV systolic pressure due to inadequate jet, pulmonary artery pressure probably normal. Aortic Valve Trisinus/trileaflet aortic valve. There is no aortic stenosis. No aortic valve insufficiency. Pulmonic Valve There is no pulmonic valvular stenosis. No pulmonic valve insufficiency. Great Vessels Normal aortic root. Pericardium/Pleural No pericardial effusion. Medication 22 gauge I.V. with prn adaptor inserted into left arm. Diluted definity 2ml given slow IV push to enhance endocardial definition. MMode/2D Measurements & Calculations LVIDd: 4.0 cm IVSd: 1.4 cm Ao root diam: 3.2 cm LVIDs: 2.0 cm LVPWd: 0.91 cm LA dimension: 3.2 cm RVDd: 3.9 cm FS: 49.1 % LAV(MOD-bp): 61.1 ml LVAd ap4: 26.6 cm2 SV(MOD-sp4): 57.6 ml LAV(MOD-bp) Indexed: 32.6 ml/m2 LVLd ap4: 7.6 cm LAV(MOD-sp2): 64.5 ml EDV(MOD-sp4): 73.7 ml LAV(MOD-sp4): 54.8 ml EDV(sp4-el): 79.1 ml LVAs ap4: 10.4 cm2 LVLs ap4: 5.6 cm ESV(MOD-sp4): 16.1 ml ESV(sp4-el): 16.6 ml EF(MOD-sp4): 78.2 % EF(sp4-el): 79.1 % SV(sp4-el): 62.5 ml LA A4 area: 18.9 cm2 TAPSE: 2.2 cm Time Measurements MV dec time: 0.25 sec Doppler Measurements & Calculations MV E max jose: 59.7 cm/sec Lat Peak E' Jose: 5.5 cm/sec Med Peak E' Jose: 8.8 cm/sec MV A max jose: 103.8 cm/sec E/E' lat: 10.9 E/E' med: 6.8 MV E/A: 0.58 MV V2 max: 121.4 cm/sec MV P1/2t max jose: 109.2 cm/sec Ao V2 max: 164.1 cm/sec MV max P.9 mmHg MV P1/2t: 102.0 msec Ao max P.8 mmHg MV V2 mean: 70.5 cm/sec Ao V2 mean: 131.8 cm/sec MV mean P.3 mmHg MV dec slope: 313.6 cm/sec2 Ao mean P.5 mmHg MV V2 VTI: 24.2 cm MVA(P1/2t): 2.2 cm2 Ao V2 VTI: 36.9 cm AV (velocity ratio): 0.75 LV V1 max: 130.3 cm/sec PA V2 max: 109.8 cm/sec LV V1 max P.8 mmHg LV V1 mean P.9 mmHg LV V1 mean: 92.3 cm/sec LV V1 VTI: 27.8 cm ECHO/Echo Complete W/ Contrast Interpretation Summary The estimated ejection fraction is 70 %. Diastolic function is indeterminate. Ordering Physician: Jennifer Croft Referring Physician: Jennifer Croft Performed By: Dell Mancilla RCS
--- NOTE | 2023-09-10 15:44 | STRESSREP ---
Stress Test Report Pharmacologic Lexiscan?myocardial perfusion stress test. Indication; 72-year-old patient with symptoms of dyspnea and chest pain She has mild chest pressure which is intermittent dyspnea on exertion since December. Patient also had a history of bilateral carotid stenosis history of depression obstructive sleep apnea and a back surgery She is scheduled for Lexiscan sestamibi myocardial fusion study. Stress protocol: Resting EKG demonstrates. Normal sinus rhythm. With age indeterminant old inferior WI. 0.4 mg of regadenoson was infused per usual protocol followed by rapid intravenous saline flush injection continuous EKG monitoring was performed. The maximum heart rate attained was 96 bpm which was 55% of maximum predicted heart . Stress EKG showed[, no significant change from the resting EKG, with maximum heart rate of 107bpm. Arrhythmia: No arrhythmia demonstrated Symptoms: Patient had no symptoms of chest pain Blood pressure at rest: 128/64 mmHg blood pressure at the end of stress: 130/62 mmHg Myocardial perfusion protocol. 14.4 mCi ]of Technetium 99m Sestamibi was injected at rest. [ 0.4 mg ]of Regadenoson was infused per usual protocol peak infusion 44.7 mCi ]of Technetium 99m sestamibi was injected. Stress images were obtained stress and rest images were reconstructed and compared in the short axis vertical and horizontal long axis. Gated images were also obtained Perfusion SPECT analysis: Review of the images demonstrate normal uptake of sestamibi at rest, post stress images demonstrate similar uptake of sestamibi to the resting images, homogeneous tracer uptake With no evidence of reversible myocardial ischemia. Gated SPECT analysis: The gated ejection fraction is 86%. Wall motion showed hyperdynamic left ventricle. Conclusion: Negative Lexiscan sestamibi myocardial perfusion study for reversible myocardial ischemia Hyperdynamic left ventricle. Arturo Alvarado MD,FACC,[facility]
== END | disposition home or self-care (01) ==
LOC: CVS 07:18
PROVIDERS: PCP Nurse Practitioner Family; Referring Provider Nurse Practitioner Family; Visit Provider Nurse Practitioner Family
DX: R06.09 Other forms of dyspnea (principal)
CPT/HCPCS: 78452; 93017; 93306; A9500; Q9957; A4216; C8929; J2785

== ENCOUNTER → 2023-10-02 | Outpatient (CLI) | payer MEDICARE, SELFPAY ==
--- NOTE | 2023-10-02 13:29 | PFTCOMP ---
COMPLETE PULMONARY FUNCTION TEST INTERPRETATION Brief HPI: Patient is a 72-year-old female, currently under the care of Jennifer Croft, who presents to [facility] for complete pulmonary function tests secondary to diagnosis of dyspnea. Respiratory therapist reports good effort and reproducible results. Interpretation: Forced expiration spirometry shows no large airways obstructive ventilatory defect with an FEV1 of 112% predicted. There is no significant bronchodilator response by strict ATS criteria. Spirograms are of good quality and plateau normally. The respiratory flow volume loop shows a normal pattern. Lung volumes by body plethysmography show a normal total lung capacity at 4.35 L, 102% predicted. All other lung volumes are within normal limits. Diffusion capacity by carbon monoxide is normal at 90% predicted. The airway resistance is slightly elevated. No previous pulmonary function tests were available for review. Impression: These pulmonary function tests are grossly within normal limits
== END | disposition home or self-care (01) ==
LOC: PSN 08:04
PROVIDERS: PCP Nurse Practitioner Family; Referring Provider Nurse Practitioner Family; Visit Provider Nurse Practitioner Family
DX: R06.09 Other forms of dyspnea (principal)
CPT/HCPCS: 94060; 94726; 94729

== ENCOUNTER → 2023-11-04 | Outpatient (CLI) | payer MEDICARE, SELFPAY ==
[2023-11-04 12:39] LABS: Absolute Lymphocyte Count 1.47 X10^3/uL (0.83-4.51); Absolute Neutrophil Count 6.3 X10^3/uL (2.0-7.7); Basophil# 0.06 X10^3/uL; Basophil% 0.7 % (0-1); Hematocrit 32.8 % (37-47); Lymphocyte # 1.47 X10^3/ul (0.83-4.51); Lymphocyte % 17.2 % (19-41); Mean Corp Hgb Conc 30.5 g/dL (32-36); Mean Corpuscular Hgb 24.2 pg (27.0-32.0); Mean Corpuscular Volume 79.4 fL (81-99); Monocyte# 0.62 X10^3/uL; Monocyte% 7.2 % (0-10); NRBC Flagged by Analyzer 0 % (0-5); Neutrophil # 6.33 X10^3/uL (2.7-7.7); Platelet Count 458 K/mm3 (150-450); RBC Distribution Width CV 17.4 % (11.6-14.6); RBC Distribution Width SD 50.4 fl (35.1-43.9); Red Blood Count 4.13 M/mm3 (4.2-5.4); White Blood Count 8.6 K/mm3 (4.4-11.0)
[2023-11-04 13:16] LABS: Anion Gap 9 (5-15); BUN 16 mg/dL (7-18); BUN/Creat Ratio 15.2 RATIO (10-20); Calcium,Total 8.9 mg/dL (8.5-10.1); Chloride 103 mmol/L (98-107); Creatinine, Serum 1.05 mg/dL (0.55-1.02); EST Glomerular Filtration Rate 54 mL/min (>60); Est Glom Filt Rate - Afr Amer 66 mL/min (>60); Glucose 108 mg/dL (74-106); Potassium 4.3 mmol/L (3.5-5.1); Sodium Level 138 mmol/L (136-145)
== END | disposition home or self-care (01) ==
LOC: LAB 11:39
PROVIDERS: PCP Nurse Practitioner Family; Referring Provider Internal Medicine Cardiovascular Disease; Visit Provider Internal Medicine Cardiovascular Disease
DX: R06.09 Other forms of dyspnea (principal); I10 Essential (primary) hypertension
CPT/HCPCS: 36415; 80048; 85025

== ENCOUNTER 2023-11-11 10:44 | Day surgery (SDC) | payer MEDICARE, SELFPAY ==
[2023-11-10 11:00] VITALS: BMI 40.2
--- NOTE | 2023-11-11 13:02 | CL.D_ITS ---
Patient Name: SHELDON DENG Study Date: 11/11/2023 Performing: Dex Martin MD Ht: 60 inches 152.4 cm : 1950 Wt: 206 lbs 93.44 kg Age: 72 Gender: female BSA: 1.89 PROCEDURE(S) PERFORMED DC01-(32750)LHC/COR/LV CLINICAL PROFILE AND INDICATIONS Indications: Suspected CAD Heart Failure: None Stress/Imaging Date: 09/17/23 CAD Presentations: Symptom unlikely to be ischemic. CONCLUSIONS Non obstructive coronary arteries Normal LV size, wall motion,and systolic function RECOMMENDATIONS Optimal medical therapy with antihypertensive therapy DESCRIPTION OF PROCEDURE The patient arrived to the procedure lab. The risks and benefits of the procedure as well as a full description of our services here and current unavailability of surgical backup were fully explained to the patient and/or their significant other prior to the catheterization. The Timeout was completed, verifying the correct patient and procedure. The patient's procedural site was prepped and draped in the usual fashion. Local anesthetic was given subcutaneously to right radial region with Lidocaine 2%. Local anesthetic was given subcutaneously to right groin region with Lidocaine 2%. Using a modified Seldinger technique, arterial access was obtained via the right radial artery, a 6Fr sheath was inserted., arterial access was obtained via the right femoral artery, a 5Fr sheath was inserted. Left Coronary Artery selective angiography was performed in multiple views using a 5 Fr. 4.0 [place] catheter. Right Coronary Artery selective angiography was then performed in multiple views using a 5 Fr. JR 5 catheter. Left Ventriculography was performed in MORALES projection using a 5 Fr. Pigtail catheter. LV to AO pullback pressures were then recorded.Contrast was injected through the sheath and the Right Iliac and Femoral artery were assessed for possible closure device.The arterial sheath was pulled and a Mynx closure device was deployed for hemostasis. The arterial sheath was pulled and a TR Band was applied for hemostasis w/ 11ml air CORONARY ANGIOGRAPHY DOMINANCE: Right Dominant LEFT HEART ASSESSMENT Left Ventricular Ejection Fraction: by LV Gram 65 % Normal Left Ventricular systolic function LEFT MAIN: Angiographically normal LEFT ANTERIOR DESCENDING ARTERY: No significant disease noted CIRCUMFLEX ARTERY: Mild luminal irregularities less than 30% RIGHT CORONARY ARTERY: Mild luminal irregularities COMPLICATIONS No Complications PROCEDURE MEDICATIONS Versed 1 mg IV Fentanyl 50 mcg IV Versed 1 mg IV Oxygen: 2 L/min via nasal cannula Baby Aspirin (81mg) 1 Tabs PO @ 11/11/2023 11:15:25 Heparin given IA 11/11/2023 12:06:42 Verapamil 2.5mg, Ntg 200mcgs, 2000 units of Heparin given IA 11/11/2023 12:06:42 SUMMARY OF HEMODYNAMIC DATA Time AIR REST ECG 11:08:13 Art 174/70 (100) 12:08:57 AO 152/72 (103) SA 12:14:33 LV 161/9, 20 12:33:44 LV 157/11, 18 12:33:50 LV 145/8, 22 12:34:29 LV 147/12, 20 12:34:35 LVp 148/11, 22 12:34:40 AOp 153/64 (100) 12:34:45 AIR REST 12:57:45 Signed By Dex Martin MD On 11/11/2023 13:01:30 Dex Martin MD
== END 2023-11-11 15:05 | disposition home or self-care (01) ==
LOC: CLSP 10:46
PROVIDERS: PCP Nurse Practitioner Family; Referring Provider Internal Medicine Cardiovascular Disease; Visit Provider Internal Medicine Cardiovascular Disease
DX: R06.09 Other forms of dyspnea (principal); E11.9 Type 2 diabetes mellitus without complications; I10 Essential (primary) hypertension; Z79.899 Other long term (current) drug therapy; Z79.82 Long term (current) use of aspirin; Z79.84 Long term (current) use of oral hypoglycemic drugs; E78.5 Hyperlipidemia, unspecified; E66.9 Obesity, unspecified; R07.9 Chest pain, unspecified; R42 Dizziness and giddiness
CPT/HCPCS: 93458; 99152; 99153; C1760; Q9967; C1769; C1894

== ENCOUNTER 2023-12-08 06:32 | Day surgery (SDC) | payer MEDICARE, SELFPAY ==
--- NOTE | 2023-12-08 07:00 | H&P.OPEN ---
HPI - General HPI Narrative SHELDON DENG, is a 73 F who presents for colonoscopy due to bright red blood per rectum. Patient last colonoscopy was in 2018 was incomplete to the sigmoid colon due to tortuous colon barium enema was normal at that time. Patient states she still been having issues with her hemorrhoids bleeding off-and-on denies having hard stools or diarrhea previous to doing the prep. Patient's hemoglobin in our system was 10 we do not really have any recent ones in our system the rest were from PCPs office. Patient did undergo a recent cardiac cath which showed ejection fraction of 65% with only less than 30% irregularities in the circumflex artery--due to her recent increase shortness of breath. Patient also had PFTs which were normal. [facility] Medical History (Updated 12/08/23 @ 07:[address] Lisa Thao MD) Acid reflux Adrenal adenoma Anxiety Arthritis Back pain Bilateral carotid artery stenosis Bladder disease Cardiology follow-up encounter Carotid artery stenosis Chest pain CPAP (continuous positive airway pressure) dependence DDD (degenerative disc disease) Depression Dietary restriction Dyspnea on exertion Essential (primary) hypertension Gastric reflux High cholesterol History of echocardiogram History of edema History of pain when walking History of stress test Hyperlipidemia Hypertension Lung nodule Non-smoker Obesity Post-menopausal Pre-syncope Right ovarian cyst Shortness of breath on exertion Syncope Type 2 diabetes mellitus Wears glasses Home Medications calcium carbonate 500 mg calcium (1,250 mg) tablet (Calcium 500) 500 mg PO QDAY 04/26/18 [History Last Taken Unknown] cholecalciferol (vitamin D3) 125 mcg (5,000 unit) capsule 5,000 unit PO QDAY 04/26/18 [History Last Taken Unknown] milnacipran 50 mg tablet (Savella) 50 mg PO BID FIBROMYALGIA 04/26/18 [History Last Taken Unknown] omega-3 fatty acids 1,000 mg capsule (Fish Oil Concentrate) 1,000 mg PO QDAY 04/26/18 [History Last Taken Unknown] acetaminophen 500 mg tablet 500 mg PO Q4H PRN PRN Pain 05/11/18 [History Last Taken Unknown] loratadine 10 mg tablet 10 mg PO DAILY SEASONAL ALLERGIES 05/11/18 [History Last Taken Unknown] lutein 40 mg capsule 40 mg PO DAILY EYES 05/11/18 [History Last Taken Unknown] losartan 100 mg tablet 100 mg PO DAILY 05/09/19 [History Last Taken 12/08/23] metformin 500 mg tablet,extended release 24 hr 1,000 mg PO DAILY #90 tabs 05/09/19 [History Last Taken 11/10/23] spironolactone 25 mg tablet 25 mg PO DAILY 05/09/19 [History Last Taken Unknown] aspirin 81 mg tablet,delayed release (Adult Aspirin Regimen) 81 mg PO DAILY 06/04/22 [History Last Taken 11/10/23] calcium polycarbophil 625 mg tablet (Fiber-Lax) 1,250 mg PO DAILY 08/11/23 [History Last Taken Unknown] docusate sodium 100 mg capsule (Colace) 100 mg PO DAILY 08/11/23 [History Last Taken Unknown] ezetimibe 10 mg tablet 10 mg PO DAILY 08/11/23 [History Last Taken Unknown] coenzyme Q10 30 mg capsule (Co Q-10) 30 mg PO DAILY 10/01/23 [History Last Taken Unknown] dapagliflozin propanediol 5 mg tablet (Farxiga) 5 mg PO DAILY 10/01/23 [History Last Taken Unknown] glucosamine 375 gd-ylytsahmf-ysu no1 500 mg-C 15 mg-carlitos 0.5 mg tablet 1 tab PO DAILY 10/01/23 [History Last Taken Unknown] pravastatin 20 mg tablet 20 mg PO QHS 10/01/23 [History Last Taken Unknown] omeprazole 40 mg capsule,delayed release 20 mg PO BID REFLUX 11/04/23 [History Last Taken 12/08/23] metoprolol succinate 100 mg tablet,extended release 24 hr (Toprol XL) 100 mg PO DAILY #30 tabs 11/12/23 [Rx Last Taken 12/08/23] Allergy/AdvReac Type Severity Reaction Status Date / Time ranitidine Allergy Other Verified 12/02/23 09:44 atorvastatin AdvReac Intermediate muscle Verified 12/02/23 09:44 aches/weakness amlodipine [From Norvas] AdvReac Other Verified 12/02/23 09:44 zolpidem AdvReac Other Verified 12/02/23 09:44 Family History Mother Arthritis Osteoporosis Alzheimer's dementia Son Arthritis Grandfather Diabetes CVA (cerebral vascular accident) Heart disease HI Brother Cancer Pt unsure type, states they believe it was caused by Agent Chuckey exposure Grandmother Thyroid disorder Surgical History (Updated 12/02/23 @ 09:58 by Thais Christine) History of back surgery History of cardiac catheterization History of esophagogastroduodenoscopy (EGD) History of right knee joint replacement History of shoulder replacement Hx of left cataract extraction Hx of right cataract extraction Social History Smoking Status: Never smoker alcohol intake: never substance use type: does not use Past Medical/Surgical History Planned Operation Planned Operative Procedure/s: CSCOPE S.O.S: No Previous Hospitalizations/Surgeries HX Hospitalizations: No HX of Surgeries: SHOULDER REPLACEMENT, LT KNEE REPLACEMENT, RT BACK OPERATIONS Any Problems With Anesthesia: No You/Your Family Experience Fever (Hyperthermia) With Anes: No Cholinesterase deficiency: No Cardiovascular Hx Chest Pain within Last 2 months: No Hx of Irregular Heartbeat and/or Afib: No Hx Heart Attack: No Hx Congestive Heart Failure: No Hx Rheumatic Fever: No Hx Hypertension: Yes (FAIRLY CONTROLLED AT THIS TIME) Hx Internal Defibrillator: No Hx Pacemaker: No Hx Cardiac Catheterization: No Hx Cardiac Surgery/Stents/Etc.: No Hx Stress Test: Yes Hx Pain in Legs when Walking/Leg Cramps: Yes Respiratory Chronic Cough: No HX of Shortness of Breath: No Hoarseness: No Hx Chronic Obstructive Pulmonary Disease (COPD): No Hx Asthma: No Hx Emphysema: No Hx Sleep Apnea: Yes CPAP: Yes BIPAP: No Hx Respiratory Tract Infection/Cold (presently): No Result (for STOP score): Positive Hx Smoking: No Smoking Status: Never smoker Gastrointestinal Controlled With Meds: Yes Hx Gastrointestinal Disorders: No Hx Gastrointestinal Bleed: No Hx Ulcer: No Hx Hiatal Hernia: No Difficulty Chewing/Swallowing: No Special diet followed at home: Yes (DIABETES) Hx Unplanned Weight Loss of 20#: No HX Unplanned Weight Gain of 20#: No Neurological Hx Seizures: No HX Syncope/Blackout Spells/Unconsciousness: No Hx Transient Ischemic Attacks (TIA): No Hx Multiple Sclerosis: No Hx Parkinson's Disease: No Hx Head/Neck Injury: No Hx Headaches: No Hx Back Injury/Pain: Yes Recent Onset of Speech Difficulty: No Restless Legs: No Does patient have nerve stimulator: No Blood Disorder Hx Leukemia: No Bleeding Tendencies: No Hx Deep Vein Thrombosis: No Hx High Cholesterol: No Blood Transmitted Disease: No Hx Hepatitis: No Hx Cirrhosis: No Hx Anemia: No Hx Blood Disorders: No Reproduction : No Is Patient Lactating: No Hx Hysterectomy: No Hx Tubal Ligation: No Are You Post Menopause: Yes Genitourinary Hx Renal Disease: No Musculoskeletal Hx Arthritis: Yes Hx Rheumatoid Arthritis: No Hx Gout: No Recent Onset of an Orthopedic Problem: No (KNEE REPLACEMENT 04/2016) Endocrine Hx Diabetes: No Thyroid Disease: No Hx Steroid Therapy: No Psycho/Social Hx Substance Use: No Hx Alcohol Use: No Hx Anxiety: Yes ( HAS ALZHEIMERS) Hx Depression: Yes Mental Illness: No Hx Dementia: No Miscellaneous Hx Cancer: No Recent Exposure to Contagious Disease: No Hx of C-Diff: No Any Loose Teeth: No Allergies ranitidine Allergy (Verified 12/02/23 09:44) Other atorvastatin Adverse Reaction (Intermediate, Verified 12/02/23 09:44) muscle aches/weakness amlodipine [From Norvas] Adverse Reaction (Verified 12/02/23 09:44) Other zolpidem Adverse Reaction (Verified 12/02/23 09:44) Other STRANGE DREAMS Discharge Is Pt Admitted From a Custodial, or a Senior Living: No After D/C, Where Do you Plan to Go: Return Home From the PAT History Number of Risk Factors: 4 Physical Exam Const alert, oriented x3 and no apparent distress HEENT normocephalic and head/scalp atraumatic Resp normal respiratory effort Cardio regular rate GI soft to palpation and non-tender; Negative for non-distended Palpation: Negative for guarding Extremity no clubbing, cyanosis or edema Skin no rashes or lesions noted Neuro CN's II-XII intact bilaterally Psych mental status grossly normal Assessment & Plan Assessment/Plan (1) BRBPR (bright red blood per rectum): (2) Hemorrhoids: Surgery Risks - Colonoscopy I discussed with the patient the risks of the procedure: Yes Risks Include but are not Limited To: Risks include but are not limited to: Bleeding, perforation requiring further surgery, inability to complete colonoscopy requiring barium enema.?Patient is aware she may be a high risk to need a barium enema as she needed 1 previously.
[2023-12-08] MEDS: Lactated Ringers 1,000 ML 15 ML IV (07:08)
[2023-12-08 07:12] VITALS: BP 132/62; PULSE 82; RESP 16; TEMP 36.4; O2SAT 96; BMI 39.2
--- NOTE | 2023-12-08 08:15 | COLBX_PTH ---
PATHOLOGY RESULTS PATIENT: SHELDON DENG LOC: EN U#:[id number] AGE/SX: 73/F ROOM: RE12/08/[address]: Dr. Lisa Thao MD : 1950 BED: DIS: 12/08/2023 SPEC #: [id number] RECD: 12/08/23 10:50 STATUS: ADONAY RELuiz #: [id number] INA: 12/08/23 08:[address]: Lisa Thao DEPT: SURGICAL PATHOLOGY RECD BY: Deyanira Mckeon ENTERED: 12/08/23 11:16 SP TYPE: COLON BX OTHR DR: Sheldon Croft, BISQUE WARE DIPPER-C Tissues: Transverse colon Procedures: Surgery Specimen Level IV HEADER OPERATION: Colonoscopy with polyp biopsy PRE-OP DIAGNOSIS: Bright red blood per rectum, hemorrhoids TISSUE SUBMITTED: Transverse colon polyp biopsy MICROSCOPIC DIAGNOSIS Transverse colon polyp, biopsy: Fragments of tubular adenoma. ISHA:srinivasa 12/09/2023 MICROSCOPIC DESCRIPTION Slides are reviewed. GROSS DESCRIPTION Received in fixative is one container labeled with the patient's name and designated transverse colon polyp. The specimen consists of multiple irregular fragments of light rodriguez soft tissue that in aggregate measure 1.0 x 0.5 x 0.1 cm. The specimen is totally submitted in one cassette. / AM:srinivasa 12/08/2023 TC:1 CPT: 06268
[2023-12-08 08:46] LABS: Bedside Glucose 122 mg/dL (74-106)
[2023-12-08 08:50] VITALS: BP 132/62; BP 135/60; PULSE 66; RESP 16; TEMP 36.4; O2SAT 99
[2023-12-08 08:55] VITALS: BP 130/59; BP 132/62; PULSE 70; RESP 16; O2SAT 97
--- NOTE | 2023-12-08 08:59 | OP.CCLET_ITS ---
12/08/2023 Haylie Hanley Re : Colonoscopy procedure for Jennifer Triplett Dear Lang This procedure was performed on Friday, December 08, 2023. My impressions and recommendations are as follows: Impressions : - Hemorrhoids found on perianal exam. - Non-bleeding prolapsed external and internal hemorrhoids. - Two less than 5 mm polyps in the transverse colon, removed with a cold snare. Resected and retrieved. - Diverticulosis in the sigmoid colon. - The examination was otherwise normal. Recommendations : - Discharge patient to home. - Resume previous diet. - Continue present medications. - Await pathology results. - Repeat colonoscopy in 5 years for surveillance based on pathology results. My findings are described in the full procedure note, which is enclosed. If I can be of further assistance, please feel free to contact me at Doctor phone number(s): , Work: . Sincerely, MD Lisa Ferraro MD 12/08/2023 8:58:36 AM This report has been signed electronically.
--- NOTE | 2023-12-08 08:59 | OP.COLON_ITS ---
Patient Name: Jennifer Triplett Procedure Date: 12/08/2023 8:08 AM Date of : 1950 Age: 73 Procedure: Colonoscopy Indications: Rectal bleeding Providers: Lisa Thao MD Referring MD: Haylie Hanley Medicines: Monitored Anesthesia Care Patient Profile: Last Colonoscopy: 2017. Complications: No immediate complications. Procedure: Pre-Anesthesia Assessment: - Prior to the procedure, a History and Physical was performed, and patient medications and allergies were reviewed. The patient's tolerance of previous anesthesia was also reviewed. The risks and benefits of the procedure and the sedation options and risks were discussed with the patient. All questions were answered, and informed consent was obtained. Prior Anticoagulants: The patient has taken no anticoagulant or antiplatelet agents except for aspirin. ASA Grade Assessment: Per anesthesia. After reviewing the risks and benefits, the patient was deemed in satisfactory condition to undergo the procedure. After I obtained informed consent, the scope was passed under direct vision. Throughout the procedure, the patient's blood pressure, pulse, and oxygen saturations were monitored continuously. The Colonoscope was introduced through the anus and advanced to the cecum, identified by the ileocecal valve-unable to intubate the cecum. The colonoscopy was technically difficult and complex due to a tortuous colon. The patient tolerated the procedure well. The quality of the bowel preparation was adequate. Scope In: 8:17:21 AM Scope Withdrawal Time 0 hours 10 minutes 58 seconds Scope Out: 8:46:15 AM Total Procedure Duration Time 0 hours 28 minutes 54 seconds Findings: Hemorrhoids were found on perianal exam. Non-bleeding prolapsed external and internal hemorrhoids were found. The hemorrhoids were medium-sized and Grade III (internal hemorrhoids that prolapse but require manual reduction). Two sessile polyps were found in the transverse colon. The polyps were less than 5 mm in size. These polyps were removed with a cold snare. Resection and retrieval were complete. A few small-mouthed diverticula were found in the sigmoid colon. The exam was otherwise without abnormality. Impression: - Hemorrhoids found on perianal exam. - Non-bleeding prolapsed external and internal hemorrhoids. - Two less than 5 mm polyps in the transverse colon, removed with a cold snare. Resected and retrieved. - Diverticulosis in the sigmoid colon. - The examination was otherwise normal. Recommendation: - Discharge patient to home. - Resume previous diet. - Continue present medications. - Await pathology results. - Repeat colonoscopy in 5 years for surveillance based on pathology results. Procedure Code(s): --- Professional --- 57538, PT, Colonoscopy, flexible; with removal of tumor(s), polyp(s), or other lesion(s) by snare technique Diagnosis Code(s): --- Professional --- K64.2, Third degree hemorrhoids D12.3, Benign neoplasm of transverse colon (hepatic flexure or splenic flexure) K62.5, Hemorrhage of anus and rectum K57.30, Diverticulosis of large intestine without perforation or abscess without bleeding CPT copyright 2021 [employer]. All rights reserved. The codes documented in this report are preliminary and upon border patrol officer review may be revised to meet current compliance requirements. MD Lisa Ferraro MD 12/08/2023 8:58:36 AM This report has been signed electronically. Number of Addenda: 0 Note Initiated On: 12/08/2023 8:08 AM
[2023-12-08 09:00] VITALS: BP 132/62; BP 135/67; PULSE 62; RESP 16; TEMP 36.4; O2SAT 100
[2023-12-08 09:09] VITALS: BP 132/62
== END 2023-12-08 09:41 | disposition home or self-care (01) ==
LOC: EN 06:32 → AC 06:33
PROVIDERS: PCP Nurse Practitioner Family; Referring Provider Nurse Practitioner Family; Visit Provider Surgery
PROC: 0DJD8ZZ Inspection of Lower Intestinal Tract, Via Natural or Artificial Opening Endoscopic (ICD-10-PCS; CPT 45378; principal; 2023-12-08 08:10)
DX: D12.3 Benign neoplasm of transverse colon (principal); E11.9 Type 2 diabetes mellitus without complications; K62.5 Hemorrhage of anus and rectum; I10 Essential (primary) hypertension; K57.30 Diverticulosis of large intestine without perforation or abscess without bleeding; K64.2 Third degree hemorrhoids; E78.00 Pure hypercholesterolemia, unspecified; Z79.899 Other long term (current) drug therapy; K64.4 Residual hemorrhoidal skin tags; Z79.82 Long term (current) use of aspirin; Z79.84 Long term (current) use of oral hypoglycemic drugs; K21.9 Gastro-esophageal reflux disease without esophagitis
CPT/HCPCS: 45385; 82962; 88305; J7120; J2405

== ENCOUNTER → 2024-03-25 | Outpatient (CLI) | payer MEDICARE, SELFPAY ==
[2024-03-25 13:08] LABS: AST(SGOT) 16 U/L (15-37); Alanine Aminotransfer ALT/SGPT 27 U/L (13-56); Alkaline Phosphatase 68 U/L (45-117); Anion Gap 8 (5-15); BUN 23 mg/dL (7-18); BUN/Creat Ratio 21.3 RATIO (10-20); Calcium,Total 9.6 mg/dL (8.5-10.1); Chloride 103 mmol/L (98-107); Cholesterol 163 mg/dL (200); Creatinine, Serum 1.08 mg/dL (0.55-1.02); EST Glomerular Filtration Rate 53 mL/min (>60); Est Glom Filt Rate - Afr Amer 64 mL/min (>60); Globulin 3.9 g/dL (2.2-4.2); Glucose 113 mg/dL (74-106); High Density Lipoprotein 47 mg/dL; Potassium 5.2 mmol/L (3.5-5.1); Protein, Total 7.9 g/dL (6.4-8.2); Sodium Level 137 mmol/L (136-145); Triglycerides 203 mg/dL; Very Low Density Lipoprotein 41 mg/dL (5-40)
== END | disposition home or self-care (01) ==
LOC: MTLAB 10:59
PROVIDERS: PCP Nurse Practitioner Family; Referring Provider Nurse Practitioner; Visit Provider Nurse Practitioner
DX: E78.2 Mixed hyperlipidemia (principal)
CPT/HCPCS: 36415; 80053; 80061

== ENCOUNTER → 2024-05-05 | Outpatient (CLI) | payer MEDICARE, SELFPAY ==
--- NOTE | 2024-05-05 15:19 | RAD_ITS ---
EXAM: XR CHEST, 2 VIEWS CLINICAL INDICATION: abnormal lung sounds TECHNIQUE: Frontal and lateral views of the chest. COMPARISON: 08/14/2023 FINDINGS: LUNGS AND PLEURAL SPACES: Unchanged rounded opacity adjacent to the right hilum may be in large vessel versus stable nodule. Linear opacities in the left lower lobe similar to the prior examination, likely scarring or atelectasis. No additional focal airspace disease, pneumothorax, or pleural effusion. HEART: No significant abnormality. Cardiac silhouette not enlarged. MEDIASTINUM: Central airways and mediastinal contour are unremarkable. BONES/JOINTS: Left shoulder arthroplasty. Postoperative changes partially visualized in the lumbar spine. No acute fracture. SOFT TISSUES: No significant abnormality. Vascular calcifications. RAD/Chest PA and Lateral IMPRESSION: 1. No additional focal airspace disease, pneumothorax, or pleural effusion. 2. Unchanged rounded opacity adjacent to the right hilum may be in large vessel versus stable nodule. 3. Linear opacities in the left lower lobe similar to the prior examination, likely scarring or atelectasis. Electronically Signed: Turner Gan DO at 23:59 EDT ,
== END | disposition home or self-care (01) ==
PROVIDERS: PCP Nurse Practitioner; Referring Provider Nurse Practitioner; Visit Provider Nurse Practitioner
DX: R05.1 Acute cough (principal)
CPT/HCPCS: 71046

== ENCOUNTER → 2024-06-21 | Outpatient (CLI) | payer MEDICARE, SELFPAY ==
--- NOTE | 2024-06-21 13:30 | RAD_ITS ---
STUDY: X-RAY - RIGHT FOOT CLINICAL: Female, 73 years old. Right great toe injury. Pain. TECHNIQUE: 3 view(s) of the foot. COMPARISON: None. FINDINGS: Superior and inferior calcaneal spurs. Mild arthrosis of the midfoot most marked at the navicular-cuneiform articulation. Moderate arthrosis of the TMT joints. Moderate arthrosis of the MTP and IP joints with hammertoe deformities of the first through fifth toes. Diffuse soft tissue swelling. RAD/Foot min 3 Views IMPRESSION: Osteopenia with calcaneal spurs, arthrosis of the navicular-cuneiform articulation, TMT joints and MTP and IP joints with hammertoe deformities. Diffuse soft tissue swelling. Electronically Signed: Elie Kraus MD at 13:59 EDT ,
== END | disposition home or self-care (01) ==
LOC: MTRAD 13:28
PROVIDERS: PCP Nurse Practitioner; Referring Provider Nurse Practitioner; Visit Provider Nurse Practitioner
DX: S91.131A Puncture wound without foreign body of right great toe without damage to nail, initial encounter (principal); X58.XXXA Exposure to other specified factors, initial encounter
CPT/HCPCS: 73630

== ENCOUNTER → 2024-07-05 | Outpatient (CLI) | payer MEDICARE, SELFPAY ==
[2024-07-05 15:45] LABS: Absolute Lymphocyte Count 2.33 X10^3/uL (0.83-4.51); Absolute Neutrophil Count 4.8 X10^3/uL (2.0-7.7); Basophil# 0.09 X10^3/uL; Basophil% 1.1 % (0-1); Eosinophil# 0.08 X10^3/uL; Hematocrit 44.8 % (37-47); Lymphocyte # 2.33 X10^3/ul (0.83-4.51); Lymphocyte % 29.4 % (19-41); Mean Corp Hgb Conc 31.3 g/dL (32-36); Mean Corpuscular Hgb 29.4 pg (27.0-32.0); Mean Corpuscular Volume 94.1 fL (81-99); Monocyte# 0.57 X10^3/uL; Monocyte% 7.2 % (0-10); NRBC Flagged by Analyzer 0 % (0-5); Neutrophil # 4.77 X10^3/uL (2.7-7.7); Neutrophil % 60.2 % (47-70); Platelet Count 313 K/mm3 (150-450); RBC Distribution Width SD 48.8 fl (35.1-43.9); Red Blood Count 4.76 M/mm3 (4.2-5.4); White Blood Count 7.9 K/mm3 (4.4-11.0)
[2024-07-05 16:11] LABS: AST(SGOT) 14 U/L (15-37); Alanine Aminotransfer ALT/SGPT 28 U/L (13-56); Albumin, Serum 3.9 g/dL (3.2-5.0); Alkaline Phosphatase 67 U/L (45-117); Anion Gap 7 (5-15); BUN 20 mg/dL (7-18); Calcium,Total 9.7 mg/dL (8.5-10.1); Chloride 105 mmol/L (98-107); EST Glomerular Filtration Rate 57 mL/min (>60); Est Glom Filt Rate - Afr Amer 70 mL/min (>60); Globulin 3.8 g/dL (2.2-4.2); Glucose 106 mg/dL (74-106); Potassium 4.1 mmol/L (3.5-5.1); Protein, Total 7.7 g/dL (6.4-8.2); Sodium Level 138 mmol/L (136-145)
[2024-07-18 16:09] LABS: Adrenocorticotropic Hormone 30.9 pg/mL (7.2-63.3); Aldosterone, Serum 8.1 ng/dL (0.0-30.0); DHEA Sulfate 36.3 ug/dL (13.9-142.8); Dopamine, Pl <30 pg/mL (0-48); Epinephrine, Pl 19 pg/mL (0-62); Norepinephrine, Pl 1349 pg/mL (0-874); Renin, Plasma 2.798 ng/mL/hr (0.167-5.380)
== END | disposition home or self-care (01) ==
LOC: BIMLAB 12:04
PROVIDERS: PCP Nurse Practitioner; Referring Provider Nurse Practitioner; Visit Provider Nurse Practitioner
DX: I10 Essential (primary) hypertension (principal)
CPT/HCPCS: 36415; 80053; 82024; 82088; 82384; 82627; 84244; 85025; 82626

== ENCOUNTER → 2024-07-12 | Outpatient (CLI) | payer MEDICARE, SELFPAY ==
[2024-07-16 00:07] LABS: Metanephrine, Ur 35 ug/L (Undefined); Metanephrines, 24Ur 33 ug/24 hr (36-209); Normetanephrines, 24Ur 248 ug/24 hr (131-612); Normetanephrines, Ur 261 ug/L (Undefined)
== END | disposition home or self-care (01) ==
LOC: BIMLAB 10:44
PROVIDERS: PCP Nurse Practitioner; Visit Provider Nurse Practitioner
DX: H66.003 Acute suppurative otitis media without spontaneous rupture of ear drum, bilateral (principal); I1A.0 Resistant hypertension; D35.02 Benign neoplasm of left adrenal gland
CPT/HCPCS: 83835

== ENCOUNTER → 2024-08-19 | Outpatient (CLI) | payer MEDICARE, SELFPAY ==
--- NOTE | 2024-08-19 11:23 | RAD_ITS ---
STUDY: X-RAY - LUMBAR SPINE REASON FOR EXAM: Female, 73 years old. PAIN TECHNIQUE: XR Spine Lumbar 4 Views COMPARISON: 08.12.18 FINDINGS: Normal lumbar lordosis. There is no substantial scoliosis. There is stabilizing a grade 1 anterolisthesis of L4 on L5. Lumbar spinal fixation hardware. Degenerative findings of the hips. There is multilevel endplate spondylosis of the lumbar vertebrae. There is multi-level degenerative disc disease with multi-level disc space narrowing. There are atherosclerotic vascular calcifications. The soft tissue structures are unremarkable. RAD/L/S Spine Min 4 Views IMPRESSION: Degenerative changes of the spine, as detailed above. Electronically Signed: Maximus Lea MD at 16:30 EDT ,
--- NOTE | 2024-08-19 11:23 | RAD_ITS ---
INDICATION: PAIN EXAMINATION/TECHNIQUE: X-RAY - LEFT XR Hand Min 3 Views COMPARISON: None. FINDINGS: No acute fracture or malalignment. No blastic or lytic lesions. Moderate scattered degenerative changes. The soft tissues are unremarkable. RAD/Hand Min 3 Views IMPRESSION: No acute radiographic abnormalities. Moderate degenerative osteoarthritis. Electronically Signed: Cj Patiño MD at 22:19 EDT ,
--- NOTE | 2024-08-19 11:23 | RAD_ITS ---
INDICATION: PAIN EXAMINATION/TECHNIQUE: X-RAY - RIGHT XR Hand Min 3 Views COMPARISON: None. FINDINGS: No acute fracture or malalignment. No blastic or lytic lesions. Moderate scattered degenerative changes. The soft tissues are unremarkable. RAD/Hand Min 3 Views IMPRESSION: No acute radiographic abnormalities. Moderate degenerative osteoarthritis. Electronically Signed: Cj Patiño MD at 22:20 EDT ,
--- NOTE | 2024-08-19 11:24 | RAD_ITS ---
STUDY: XR Shoulder Min 2 Views REASON FOR EXAM: Female, 73 years old. PAIN TECHNIQUE: XR Shoulder 4 Views RIGHT COMPARISON: None. FINDINGS: There is moderate degenerative arthrosis of the glenohumeral articulation. There is degenerative arthrosis of the acromioclavicular joint without inferior osseous spur formation. Normal acromion. Normal humeral head and visualized proximal humerus. There is periarticular soft tissue calcification consistent with a calcific tendinitis. Normal visualized pulmonary apex. RAD/Shoulder min 2 Views IMPRESSION: There is periarticular soft tissue calcification consistent with a calcific tendinitis. Degenerative findings of the shoulder. Electronically Signed: Maximus Lea MD at 16:35 EDT ,
--- NOTE | 2024-08-19 11:24 | RAD_ITS ---
STUDY: X-RAY - CERVICAL SPINE REASON FOR EXAM: Female, 73 years old. PAIN TECHNIQUE: XR Spine Cervical 6 Views COMPARISON: None FINDINGS: Normal anterior atlantoaxial articulation. No acute findings of the odontoid process. There is straightening of the normal cervical lordosis. There is multi-level endplate spondylosis. There is multi-level degenerative disc disease with multilevel disc space narrowing. There is multi-level osseous foraminal stenosis. The soft tissue structures are unremarkable. RAD/Cerv Spine 4 or 5 Views IMPRESSION: There are degenerative changes as noted above. Electronically Signed: Maximus Lea MD at 16:49 EDT ,
--- NOTE | 2024-08-19 11:27 | RAD_ITS ---
INDICATION: osteoarthritis EXAMINATION/TECHNIQUE: X-RAY - RIGHT XR Wrist Min 3 Views COMPARISON: None. FINDINGS: No acute fracture or malalignment. No blastic or lytic lesions. Moderate scattered degenerative changes. The soft tissues are unremarkable. RAD/Wrist min 3 Views IMPRESSION: No acute radiographic abnormalities. Moderate degenerative osteoarthritis. Electronically Signed: Cj Patiño MD at 22:19 EDT ,
--- NOTE | 2024-08-19 11:27 | RAD_ITS ---
INDICATION: osteoarthritis EXAMINATION/TECHNIQUE: X-RAY - LEFT XR Wrist Min 3 Views COMPARISON: None. FINDINGS: No acute fracture or malalignment. No blastic or lytic lesions. Moderate scattered degenerative changes. The soft tissues are unremarkable. RAD/Wrist min 3 Views IMPRESSION: No acute radiographic abnormalities. Moderate degenerative osteoarthritis. Electronically Signed: Cj Patiño MD at 22:20 EDT ,
== END | disposition home or self-care (01) ==
PROVIDERS: PCP Nurse Practitioner; Referring Provider Internal Medicine Rheumatology; Visit Provider Internal Medicine Rheumatology
DX: Z00.01 Encounter for general adult medical examination with abnormal findings (principal); M15.4 Erosive (osteo)arthritis; M25.511 Pain in right shoulder; M75.81 Other shoulder lesions, right shoulder; M50.30 Other cervical disc degeneration, unspecified cervical region; M51.360 Other intervertebral disc degeneration, lumbar region with discogenic back pain only
CPT/HCPCS: 72050; 72110; 73030; 73110; 73130

== ENCOUNTER → 2024-08-23 | Outpatient (CLI) | payer MEDICARE, SELFPAY ==
--- NOTE | 2024-08-23 13:11 | BI_ITS ---
MAMMOGRAPHY - BILATERAL SCREENING REASON FOR EXAM: Female, 73 years old. Routine annual screening examination. PERTINENT HISTORY: Non-contributory. TECHNIQUE: Digital bilateral breast linette (3D mammographic acquisition) in the CC and MLO projections. 2-D mediolateral oblique (MLO) and craniocaudad (CC) views of both breasts were obtained. CAD: Full Field Digital Mammography with Computer Added Detection was performed. COMPARISON: Comparison is made with prior study dated May 19, 2023 and May 14, 2022. FINDINGS: Breast Composition: The breasts are almost entirely fatty. There are no dominant masses or suspicious calcifications. No other significant abnormalities are identified. There has been no significant change since the prior study. BI/SCRN MAMM (CAD)W/LINETTE BILAT IMPRESSION: Stable bilateral screening mammogram. Yearly follow-up mammogram recommended. (A) ASSESSMENT CATEGORY: BIRADS Category 1: Negative. A letter regarding these results will be sent to the patient by the facility within 30 days. Approximately 10% of breast cancers are not detected by mammography. A normal mammogram should not delay biopsy of a clinically suspicious abnormality. [id number] Electronically Signed: Balbir Field MD at 14:47 EDT ,
--- NOTE | 2024-08-23 13:18 | BD_ITS ---
STUDY: DUAL ENERGY X-RAY ABSORPTIOMETRY / DXA REASON FOR EXAM: Female, 73 years old. screening for osteoporosis TECHNIQUE: Bone Mineral Density (BMD) measurements of lumbar spine and bilateral hips were obtained. COMPARISON: Comparison is made with prior study August 21, 2022. FINDINGS: Lumbar Spine (L1-L4): g/cm2 (1.258) / T-score (2.5) / Z-score (4.8) Findings are suggestive of normal bone density with a low fracture risk. Left Femur Total: g/cm2 (1.064) / T-score (1.0) / Z-score (2.8) Left Femoral Neck: g/cm2 (0.715) / T-score (-1.2) / Z-score (0.9) Right Femur Total: g/cm2 (0.956) / T-score (0.1) / Z-score (1.9) Right Femoral Neck: g/cm2 (0.745) / T-score (-0.9) / Z-score (1.2) The T-Scores on the most recent prior examination were: Lumbar Spine (L1-L4): There has been improvement of bone density since the previous examination. Left Femur Total: which represents an improvement of 2.4%. Right Femur Total: which represents an improvement of 0.9%. BD/Dexa Bone Density Study IMPRESSION: The patient is considered osteopenic as outlined below according to [employer] [place] Organization (WHO) criteria with a low fracture risk. There has been improvement of bone density since the previous examination. Reference Information: The T-score is the number of standard deviations above or below the standard which is normal for young adults at their peak bone mineral density. The World Health Organization (WHO) interprets the T-scores as follows: Above -1 Normal bone density Between -1 and -2.5 Osteopenia Equal to / or below -2.5 Osteoporosis As a practical clinical guideline, osteopenia may be graded as follows: Mild -1 through -1.5 Moderate -1.6 through -2.0 Severe -2.1 through -2.4 The Z-score is the number of standard deviations above or below age-matched controls. A Z-score of less than -1.5 would be considered abnormal. References: 1. NIH Osteoporosis and Related Bone Diseases www osteo.org 2. International Society for Clinical Densitometry www iscd.org 3. National Osteoporosis Foundation www nof.org Electronically Signed: Balbir Field MD at 13:29 EDT ,
== END | disposition home or self-care (01) ==
LOC: OPBD 13:11
PROVIDERS: PCP Nurse Practitioner; Referring Provider Nurse Practitioner; Visit Provider Nurse Practitioner
DX: Z12.31 Encounter for screening mammogram for malignant neoplasm of breast (principal); Z78.0 Asymptomatic menopausal state
CPT/HCPCS: 77063; 77067; 77080

== ENCOUNTER → 2024-10-13 | Outpatient (CLI) | payer MEDICARE, SELFPAY ==
[2024-10-25 09:07] LABS: Dopamine, Pl 131 pg/mL (0-48); Epinephrine, Pl 36 pg/mL (0-62); Norepinephrine, Pl 2315 pg/mL (0-874)
== END | disposition home or self-care (01) ==
PROVIDERS: PCP Internal Medicine; Referring Provider Nurse Practitioner; Visit Provider Nurse Practitioner
DX: I1A.0 Resistant hypertension (principal)
CPT/HCPCS: 36415; 82384

== ENCOUNTER → 2024-10-28 | Outpatient (CLI) | payer MEDICARE, SELFPAY ==
--- NOTE | 2024-10-28 12:40 | RAD_ITS ---
STUDY: X-RAY - PELVIS AND RIGHT HIP REASON FOR EXAM: Female, 73 years old. fall TECHNIQUE: 3 views of the pelvis and hip. COMPARISON: Pelvic x-ray dated April 12, 2018.. FINDINGS: No demonstrated fracture of the pelvic bony structures or hips. Atherosclerotic calcifications are present. Moderate right hip joint space narrowing and osteoarthritis. Spinal hardware is present. There is a non-specific bowel gas pattern. Normal visualized soft tissue structures. Normal bilateral iliac wings, sacroiliac joints and visualized sacrum. Normal bilateral superior and inferior pubic rami. Normal pubic symphysis. Normal bilateral ischial tuberosities. Unremarkable left hip joint. RAD/HIP, UNI W/ Pelvis 2-3 Views IMPRESSION: 1. No acute fracture Electronically Signed: Joseph Cruz MD at 14:41 EST ,
--- NOTE | 2024-10-28 12:50 | RAD_ITS ---
STUDY: X-RAY - RIGHT KNEE REASON FOR EXAM: Female, 73 years old. fall one week ago TECHNIQUE: 4 view(s) of the knee. COMPARISON: Right knee x-ray dated January 10, 2016. FINDINGS: No demonstrated acute fracture. No hardware complications are present. Unremarkable knee prosthetic components. Atherosclerotic calcifications are present. Normal proximal tibiofibular articulation. A small joint effusion is present. The soft tissue structures are unremarkable. RAD/Knee 4 or More Views IMPRESSION: 1. Small joint effusion Electronically Signed: Joseph Cruz MD at 14:43 EST ,
== END | disposition home or self-care (01) ==
LOC: MTRAD 12:40
PROVIDERS: PCP Internal Medicine; Referring Provider Physician Assistant Surgical; Visit Provider Physician Assistant Surgical
DX: M15.9 Polyosteoarthritis, unspecified (principal); W19.XXXA Unspecified fall, initial encounter
CPT/HCPCS: 73502; 73564

== ENCOUNTER → 2024-11-29 | Outpatient (CLI) | payer MEDICARE, SELFPAY ==
--- NOTE | 2024-11-29 09:53 | MRI_ITS ---
PROCEDURE: MRI ABD WITH AND W/O CONTRAST REASON FOR EXAM: Adrenal lesion. TECHNIQUE: Multiplanar, multisequence MRI of the upper abdomen without and with intravenous gadolinium-based contrast. CONTRAST: 19 cc Clariscan intravenously COMPARISON: None. FINDINGS: Liver: Normal hepatic signal. No hepatic mass. No steatosis or abnormal iron accumulation. Normal enhancement. Biliary: Tiny stones and sludge with no signs of cholecystitis. No biliary dilatation. Pancreas: No mass or ductal dilation. Spleen: Normal size, signal intensities and contrast enhancement. Adrenals: 16 x 8 mm ovoid lesion in the left adrenal gland with signal loss on opposed phase imaging consistent with lipid laden adenoma, benign. Right adrenal is normal. Kidneys: Normal renal sizes without mass or hydronephrosis. Peritoneum / Retroperitoneum: No ascites. Lymph Nodes: No upper abdominal lymphadenopathy. Major Vessels: The abdominal aorta and IVC demonstrate normal caliber. Aortic plaque is noted. The portal and hepatic veins are patent. Bones: Lumbar hardware and associated susceptibility artifact. No focal marrow lesions identified. Miscellaneous: Moderate size hiatal hernia. Moderate colonic stool burden indicating constipation. MRI/MRI Abd WITH and W/O Contrast IMPRESSION: 1. Small benign left adrenal adenoma, no follow-up is needed. 2. Incidental cholelithiasis and moderate-size hiatal hernia. Reading Location: [facility]
[2024-11-30 14:08] LABS: Adrenocorticotropic Hormone 35.1 pg/mL (7.2-63.3)
[2024-12-13 09:08] LABS: Dopamine, Pl <30 pg/mL (0-48); Epinephrine, Pl 30 pg/mL (0-62); Norepinephrine, Pl 1216 pg/mL (0-874)
== END | disposition home or self-care (01) ==
PROVIDERS: PCP Internal Medicine; Referring Provider Internal Medicine; Visit Provider Internal Medicine
DX: R89.9 Unspecified abnormal finding in specimens from other organs, systems and tissues (principal); D35.00 Benign neoplasm of unspecified adrenal gland
CPT/HCPCS: 36415; 74183; 82024; 82384; A9575; A4216

== ENCOUNTER 2024-12-08 12:00 | Outpatient (RCR) | payer MEDICARE, SELFPAY ==
--- NOTE | 2024-09-20 13:15 | HP.PTEVAL ---
Patient's Visit Information Visit Information Visit Information: SHELDON DENG is a 73 year old F referred to Physical Therapy by Dr. Jamel Hoskins MD with a diagnosis of R shoulder RC tendonitis, cervical and lumbar spondylosis. Date of Evaluation: 09/20/24 Physical Therapist: Lico Croft, DPT, OCS, CSCS Visit Plan Frequency: 2x /Week Duration: 4-6 Weeks Plan: 2x/week for 4-6 weeks for pool based ex for UE/LE ROM, spinal ROM, HS stretches gastroc stretches, weight shift and balance and general core and LE and postural strength, vestibular balance(eyes closed). Please progress Home ex throughout this time so has I program at d/c. Include RC strength in program in pool and HEP Subjective Subjective: GP sent to OA doctor which took a while. Arthritis doctor said degenerative OA which sent to [facility] for pain management. R shoulder painful and hands hurt, for years. It is OA 0-03/04. Got salve which does not help. Lifting arm hurts. Legs also hurt form Neuropathy and OA. Feet hurt a lot. Trouble getting out of chair due to weakness and hard to push. No neurologist. Offered shot in shoulder but rather stick with salve. Foot and leg pain is constant. Back and neck also hurt intermittently. Sleeps OK much of time. AM is hard to walk. hard to get out of chair in am. Shuffles feet.Gets winded easy. Not employed. Activitiy: taking care of 4 you grandson, does shooping. Lives with alone attached to r house. Basic ADLS all I but take extra time. No steps. No regular exercises. Hobbbies: No hobbies A couple falls maybe due to LOB while gardening. Has cane and wh walker at home, does not use. Pain R shoulder: Pain Intensity (Out of 10): 0 Pain Intensity Range: 0 and 5 Objective Objective: Walks slow with R trendelenberg sightly but I. Trasnfers chair and bed I with UE. Steps very weak and requires rail but able with either leg. cervical and lumbar AROM WFL and without pain. UE AROM WFL but R shoulder limited end range slightly vs L and painful at top of movement. er adn IR WFL. LE AROM WFL but HS tightness B at -30 90/90 test. and 0 AROM hips against gravity with 5 PROM. knees and ankles WFL with tightness gastroc 0 DF. reflexes 0/3 patella and achilles and bi and tri B. Sensation diminished to gross light touch B LE mid thigh down, strength hips and core 3, knees 4-, ankles 3+ B. UE strength 3+ B without much pain in elevation or er or IR. biceps and triceps 4/5 wirst ext and thumb ext 45 - c/s compression. Weak unstable core with hip testing in sitting. Max funcitonal weakness on sit to stand and steps. Balance/Special Test Scores Functional Gait Assessment Score: 23 % Disability: 23.3400 CATSIB Score (Max score 120 seconds): 90 Quick DASH Score: 47.7250 Goals Goal 1:: fga to reduce fall risk Goal Time Frame: 4-6 Weeks Goal 2:: I appropriate HEP to limit future problems ith pain and steadyness Goal Time Frame: 4-6 Weeks Goal 3:: Pt feel 75% improvement in mobility and discomfort Goal Time Frame: 4-6 Weeks Goal 4:: Exit bed in am without hesitation or pain Goal Time Frame: 4-6 Weeks Goal 5:: ;steps reciprocally with one rail Goal Time Frame: 4-6 Weeks Rehabilitation Potential Physical Therapy Diagnosis: weaknesa adn lack of movement creating pain and difficulty with mobility Rehabilitation Potential: Fair Anticipated Interventions Patient/Client Instruction: Educate patient on: Condition and Risk Factors For the Purpose of:: To improve muscle performance and motor function, To increase tolerance to activity/condition/position, To improve ability of physical actions for home/community/work/leisure and To improve gait and locomotor functions Therapeutic Exercise to Include: Strength training, Balance training, Flexibilty training, Gait and locomotor training, In an aquatic setting, Passive ROM and Active ROM For the Purpose of:: To decrease pain, To increase ROM, To improve nutrient delivery to tissue, To improve muscle performance and motor function, To increase tolerance to activity/condition/position and To improve gait and locomotor functions Text: Thank you for the opportunity to evaluate your patient. For Medicare and Medicare HMO plans, please review the plan of care and approve it. It will need to be FAXED BACK to us at [phone] for Medicare purposes. For Medicare only, by signing this I certify the plan of care. Please let me know if there are questions or concerns regarding this plan of care. Physician Signature: Date:
--- NOTE | 2024-11-03 13:55 | HP.PTREVAL ---
Re-Evaluation Intro: Dr. Jamel Hoskins MD, It has been my pleasure to treat SHELDON DENG over the last 10 visits for R shoulder RC tendonitis, cervical and lumbar spondylosis. Please see the progress note below for an update on the physical therapy plan of care! Subjective Subjective: Water helped as it felt good. Easier movement of legs. Pain in groin and R knee was still present and less painful and moving better. Shoulder is still painful. She did fall a week ago and needs shoulder replacement prior to that. Lost balance with fall. Neck has not been bad adn back is sharp at times but not nearly as often. Sees aMrie on Thursday. Steps are painful still, getting out of bed is a little easier. Objective Objective/Function: LB ext max limited, flexion min limited, SB mod limtied and all painful. Walking well but B trendelenberg gait and R LE antalgia. Overall not feeling a lot better but slow progress and is getting exercise while improving. Other things to teach her and she understands exit strategy to I pool or HEP New related goal and fair prognosis with compliance. Will see marie next week for other options also. Plan Plan Plan: 2x/week x 4 weeks for continued pool toward I pool program or HEP as exit strategy. Emphasize general strength, B RC strength and LB ROM exercises to I both home and pool. luis e only has a few exercises she is I with in the pool Balance/Gait/Functional tests Balance/Special Test Scores Functional Gait Assessment Score: 23 % Disability: 23.3400 CATSIB Score (Max score 120 seconds): 90 Lower Extremity Functional Score: 22 Quick DASH Score: 47.7250 Goals Goals Goal 1:: fga 25/30 to reduce fall risk Goal Time Frame: 4-6 Weeks Goal Progress: Not Progressing Goal 2:: I appropriate HEP to limit future problems ith pain and steadyness Goal Time Frame: 4-6 Weeks Goal Progress: Progressing Goal 3:: Pt feel 75% improvement in mobility and discomfort Goal Time Frame: 4-6 Weeks Goal Progress: 20% Goal 4:: Exit bed in am without hesitation or pain Goal Time Frame: 4-6 Weeks Goal Progress: Progressing Goal 5:: ;steps reciprocally with one rail Goal Time Frame: 4-6 Weeks Goal Progress: Not Progressing Goal 6:: I pool or home ex program for hip and knee strength, RC strength adn LB ROM, general ex and 50% b matthew overall. Goal Time Frame: 2-4 Weeks Goal Progress: NEW GOAL Anticipated Interventions Anticipated Interventions Patient/Client Instruction: Educate patient on: Condition and Risk Factors For the Purpose of:: To improve muscle performance and motor function, To increase tolerance to activity/condition/position, To improve ability of physical actions for home/community/work/leisure and To improve gait and locomotor functions Therapeutic Exercise to Include: Strength training, Balance training, Flexibilty training, Gait and locomotor training, In an aquatic setting, Passive ROM and Active ROM For the Purpose of:: To decrease pain, To increase ROM, To improve nutrient delivery to tissue, To improve muscle performance and motor function, To increase tolerance to activity/condition/position and To improve gait and locomotor functions Re-Evaluation Ending Re-evaluation ending: Please do not hesitate to contact me at [phone] by phone or if you have questions or concerns regarding this new plan of care! Sincerely, Lico Croft, DPT, OCS, CSCS
--- NOTE | 2024-12-08 12:19 | HP.PTDCSUM_ITS ---
Discharge Summary D/C summary: It has been my pleasure to treat SHELDON DENG referred by Dr. Jamel Hoskins MD, with the diagnosis of R shoulder RC tendonitis, cervical and lumbar spondylosis for a total of 18 visit(s). Discharge Date: 12/08/24 Please see the following information for a summary of their discharge status. Subjective Subjective: fell one time putting shoes on at [facility] house. R TKA has been recalled. [facility] gave shot in groin which helped the knee. Will have back injection. Neck is doing well. R shoulder hurts intermittently, but activities pretty normal. Back pain up to 6/10. Tired after running all day. Feet are painful and has neuropathy up to quads. See [facility] next week. No better than a month ago. Pain R shoulder: Pain Intensity (Out of 10): 4 neck: Pain Intensity (Out of 10): 4 LBP: Pain Intensity (Out of 10): 6 R hip: Pain Intensity (Out of 10): 3 RLE: Pain Intensity (Out of 10): 2 Overall Improvement % Improvement: 20 Objective Objective/Function: Lumbar AROM WFL but painful. FGA not changing despite her hard work. UE AROM WFL adn shoulder doing better. R knee is painful on steps and prefers to use L. Overall not improving objectively or subjectively Goals Goal 1:: fga 25/30 to reduce fall risk Goal Progress: Not Progressing Goal 2:: I appropriate HEP to limit future problems ith pain and steadyness Goal Progress: Not Progressing Goal 3:: Pt feel 75% improvement in mobility and discomfort Goal Progress: 20% only Goal 4:: Exit bed in am without hesitation or pain Goal Progress: slowly Goal 5:: ;steps reciprocally with one rail Goal Progress: Not Progressing Goal 6:: I pool or home ex program for hip and knee strength, RC strength adn LB ROM, general ex and 50% b matthew overall. Goal Progress: Progressing Plan Plan: d/c to HEP D/C Information Discharge Comments: Back to doctor and pain management next week. d/c sentence: If there are questions or concerns regarding this patient's physical therapy, please feel free to call me at [phone]. Thank you for the referral of this patient. Sincerely, Lico Croft, DPT, OCS, CSCS Balance/Gait/Functional tests Balance/Special Test Scores Functional Gait Assessment Score: 22 % Disability: 26.6700 CATSIB Score (Max score 120 seconds): 90 Lower Extremity Functional Score: 22 Quick DASH Score: 25.0000 Improvement % Improvement: 20
== END 2024-12-08 19:00 | disposition home or self-care (01) ==
LOC: PT 12:00
PROVIDERS: PCP Internal Medicine; Referring Provider Anesthesiology; Visit Provider Anesthesiology
DX: M43.06 Spondylolysis, lumbar region (principal); M43.02 Spondylolysis, cervical region; M75.81 Other shoulder lesions, right shoulder
CPT/HCPCS: 97113; 97163; 97164

== ENCOUNTER → 2024-12-28 | Outpatient (CLI) | payer MEDICARE, SELFPAY | END | disposition home or self-care (01) | LOC: SL 19:44 | PROVIDERS: PCP Internal Medicine; Referring Provider Internal Medicine; Visit Provider Internal Medicine | DX: G47.33 Obstructive sleep apnea (adult) (pediatric) (principal) | CPT/HCPCS: 95811 ==

== ENCOUNTER → 2025-02-02 | Outpatient (CLI) | payer MEDICARE, SELFPAY ==
[2025-02-02 10:51] LABS: Absolute Lymphocyte Count 1.75 X10^3/uL (0.83-4.51); Absolute Neutrophil Count 3.8 X10^3/uL (2.0-7.7); Basophil# 0.07 X10^3/uL; Basophil% 1.1 % (0-1); Eosinophil# 0.09 X10^3/uL; Eosinophils% 1.4 % (0-5); Hematocrit 43.7 % (37-47); Hemoglobin 14.2 g/dL (12.0-15.0); Lymphocyte # 1.75 X10^3/ul (0.83-4.51); Lymphocyte % 27.4 % (19-41); Mean Corp Hgb Conc 32.5 g/dL (32-36); Mean Corpuscular Hgb 30.1 pg (27.0-32.0); Mean Corpuscular Volume 92.8 fL (81-99); Mean Platelet Vol. 9.2 fl (6.2-12.0); Monocyte% 9.4 % (0-10); NRBC Flagged by Analyzer 0 % (0-5); Neutrophil # 3.75 X10^3/uL (2.7-7.7); Neutrophil % 58.8 % (47-70); Platelet Count 359 K/mm3 (150-450); RBC Distribution Width CV 13.2 % (11.6-14.6); RBC Distribution Width SD 45.5 fl (35.1-43.9); Red Blood Count 4.71 M/mm3 (4.2-5.4); White Blood Count 6.4 K/mm3 (4.4-11.0)
[2025-02-02 11:02] LABS: Hemoglobin A1c 6.2 % (<=5.6)
[2025-02-02 11:27] LABS: ALB/GLOB Ratio 1.5 RATIO (0.9-2.4); AST(SGOT) 17 U/L (<=31); Alanine Aminotransfer ALT/SGPT 22 U/L (<=34); Albumin, Serum 4.1 g/dL (3.4-4.8); Alkaline Phosphatase 76 U/L (35-104); Anion Gap 12 (5-15); BUN 22 mg/dL (4-19); BUN/Creat Ratio 22.4 RATIO (10-20); Calcium,Total 9.7 mg/dL (7.6-11.0); Carbon Dioxide 25.3 mmol/L (21.0-32.0); Chloride 102 mmol/L (98-108); Cholesterol 135 mg/dL (<=200); Creatinine, Serum 0.98 mg/dL (0.70-1.20); EST Glomerular Filtration Rate 60 (>60); Globulin 2.8 g/dL (2.2-4.2); Glucose 113 mg/dL (70-99); High Density Lipoprotein 54 mg/dL; Low Density Lipoprotein Calc. 64 mg/dL; Potassium 4.2 mmol/L (3.3-5.1); Protein, Total 6.9 g/dL (5.9-8.4); Sodium Level 140 mmol/L (133-145); Total Bilirubin 0.28 mg/dL (0.00-1.30); Triglycerides 87 mg/dL; Very Low Density Lipoprotein 17 mg/dL (5-40); cholesterol:hdl ratio screen 2.51
[2025-02-02 11:28] LABS: Vitamin D,25 Hydroxy 33.5 ng/mL (30-100)
== END | disposition home or self-care (01) ==
LOC: MTLAB 09:05
PROVIDERS: PCP Internal Medicine; Referring Provider Internal Medicine; Visit Provider Internal Medicine
DX: I10 Essential (primary) hypertension (principal); E55.9 Vitamin D deficiency, unspecified; R73.02 Impaired glucose tolerance (oral)
CPT/HCPCS: 36415; 80053; 80061; 82306; 83036; 85025

== ENCOUNTER → 2025-03-09 | Outpatient (CLI) | payer MEDICARE, SELFPAY ==
--- NOTE | 2025-03-09 13:29 | ART_ITS ---
Reason For Study Reason For Study: Abnormal home study Procedure A bilateral lower extremity continuous wave Doppler with analog waveform analysis and ankle brachial indexes. Left Segmental Pressures Left brachial= 170mmHg. Left posterior tibial artery = 183mmHg. Left dorsalis pedis artery = 172mmHg. Left digit = 75 mmHg. The left dorsalis pedis waveforms are biphasic. The left posterior tibial artery waveforms are triphasic. Right Segmental Pressures Right brachial= 155mmHg. Right posterior tibial artery = 179mmHg. Right dorsalis pedis artery = 158mmHg. Right digit = 77 mmHg. The right dorsalis pedis waveforms are triphasic. The right posterior tibial artery waveforms are triphasic. Indices The right ankle brachial index by the dorsalis pedis is 0.93. The right ankle brachial index by the posterior tibial artery is 1.05. The right digital-brachial index is 0.45. The left ankle brachial index by the dorsalis pedis is 1.01. The left ankle brachial index by the posterior tibial artery is 1.08. The left digital-brachial index is 0.44. VL/Ankle Brachial Index Interpretation Summary Right ORI 1.05, normal. Doppler/PVR waveforms of the right ankle normal at rest . TBI diminished, pedal/digit disease vs spasm. Left ORI 1.08, normal. Doppler/PVR waveforms of the left ankle normal at rest. TBI diminished, pedal/digit disease vs spasm. Ordering Physician: Miladys Malone Referring Physician: MILADYS MALONE MD Performed By: [facility]
== END | disposition home or self-care (01) ==
LOC: CVS 13:28
PROVIDERS: PCP Internal Medicine; Referring Provider Internal Medicine; Visit Provider Internal Medicine
DX: R09.89 Other specified symptoms and signs involving the circulatory and respiratory systems (principal)
CPT/HCPCS: 93922

== ENCOUNTER → 2025-05-26 | Outpatient (CLI) | payer MEDICARE, SELFPAY | END | disposition home or self-care (01) | LOC: MRI 13:52 | PROVIDERS: PCP Internal Medicine; Referring Provider Anesthesiology; Visit Provider Anesthesiology | DX: M54.16 Radiculopathy, lumbar region (principal) | CPT/HCPCS: 72148 ==

== ENCOUNTER → 2025-06-09 | Outpatient (CLI) | payer MEDICARE, SELFPAY ==
[2025-06-09 12:42] LABS: Hematocrit 42.6 % (37-47); Hemoglobin 14.0 g/dL (12.0-15.0); Immature Granulocytes Count 0.100 X10^3/uL (0.0-0.0); Mean Corp Hgb Conc 32.9 g/dL (32-36); Mean Corpuscular Volume 92.0 fL (81-99); Mean Platelet Vol. 9.5 fl (6.2-12.0); NRBC Flagged by Analyzer 0 % (0-5); Platelet Count 304 K/mm3 (150-450); RBC Distribution Width CV 13.8 % (11.6-14.6); RBC Distribution Width SD 46.8 fl (35.1-43.9); Red Blood Count 4.63 M/mm3 (4.2-5.4); White Blood Count 7.0 K/mm3 (4.4-11.0)
[2025-06-09 13:22] LABS: CRP < 3.00 mg/L (0.0-3.0)
== END | disposition home or self-care (01) ==
LOC: MTLAB 10:50
PROVIDERS: PCP Internal Medicine; Referring Provider Orthopaedic Surgery; Visit Provider Orthopaedic Surgery
DX: T84.012A Broken internal right knee prosthesis, initial encounter (principal); X58.XXXA Exposure to other specified factors, initial encounter
CPT/HCPCS: 36415; 85025; 85652; 86140